=== PATIENT | male | born 1965 | race Caucasian/White ===

== ENCOUNTER → 2020-09-23 08:35 | Outpatient (BNVA) | payer MEDICAID, SELFPAY | PROVIDERS: PCP Family Medicine; Visit Provider Nurse Practitioner Gerontology | DX: Z76.89 Persons encountering health services in other specified circumstances (principal) ==

== ENCOUNTER → 2021-03-17 13:32 | Outpatient (BNVA) | payer SELFPAY | PROVIDERS: PCP Family Medicine; Visit Provider Internal Medicine | DX: Z02.79 Encounter for issue of other medical certificate (principal) ==

== ENCOUNTER → 2022-03-05 08:47 | Outpatient (BNVA) | payer SELFPAY | PROVIDERS: PCP Family Medicine; Visit Provider Internal Medicine | DX: Z02.79 Encounter for issue of other medical certificate (principal) ==

== ENCOUNTER 2023-02-10 13:10 | Outpatient (REF) | payer MEDICAID, SELFPAY | END 2023-02-10 13:11 | disposition home or self-care (01) | LOC: HO.LNP 13:10 | PROVIDERS: PCP Family Medicine; Visit Provider Surgery | DX: D17.9 Benign lipomatous neoplasm, unspecified (principal) | CPT/HCPCS: 11403; 11404; 88304; 99202 ==

== ENCOUNTER → 2023-02-16 09:41 | Outpatient (BNVA) | payer SELFPAY | PROVIDERS: PCP Family Medicine; Visit Provider Physician Assistant Medical | DX: Z02.79 Encounter for issue of other medical certificate (principal) ==

== ENCOUNTER → 2023-02-19 08:39 | Outpatient (BNVA) | payer MEDICAID, SELFPAY | PROVIDERS: PCP Family Medicine; Visit Provider Surgery | DX: D17.9 Benign lipomatous neoplasm, unspecified (principal) | CPT/HCPCS: 99212 ==

== ENCOUNTER → 2023-03-23 08:55 | Outpatient (BNVA) | payer MEDICAID, SELFPAY | PROVIDERS: PCP Family Medicine; Visit Provider Nurse Practitioner Family | DX: N40.1 Benign prostatic hyperplasia with lower urinary tract symptoms (principal); R39.15 Urgency of urination; R35.0 Frequency of micturition | CPT/HCPCS: 51798; 99202 ==

== ENCOUNTER → 2024-02-14 10:32 | Outpatient (BNVA) | payer SELFPAY | PROVIDERS: PCP Family Medicine; Visit Provider Physician Assistant Medical | DX: Z02.79 Encounter for issue of other medical certificate (principal) ==

== ENCOUNTER 2024-04-21 12:47 | Outpatient (REF) | payer MEDICAID, SELFPAY ==
[2024-04-21 20:33] LABS: Creatinine Urine 39.69 mg/dL; Microalbumin Urine < 5.0 mg/L
[2024-04-22 00:56] LABS: Alanine Aminotransferase 136 U/L (0-40); Albumin Level 4.3 g/dL (3.5-5.0); Alkaline Phosphatase 95 U/L (39-117); Anion Gap 15 (12-20); Aspartate Amino Transferase 74 U/L (5-37); Bilirubin Direct 0.2 mg/dL (0.0-0.5); Bilirubin Total 0.7 mg/dL (0.0-1.0); Blood Urea Nitrogen 20 mg/dL (9-16); Calcium 10.5 mg/dL (8.4-10.2); Carbon Dioxide 23 mmol/L (22-29); Chloride 101 mmol/L (96-108); Cholesterol 225 mg/dL (<200); Estimated Glomerular Filt Rate > 60; Glucose Random 314 mg/dL (60-115); HDL Cholesterol 39 mg/dL (>40); Potassium 4.2 mmol/L (3.3-5.1); Sodium 135 mmol/L (135-145); Total Protein 7.1 g/dL (6.5-8.0); Triglycerides 455 mg/dL (<150)
[2024-04-22 04:00] LABS: Estimated Average Glucose 306 mg/dL; Hemoglobin A1c % 12.3 % (<6.0)
== END 2024-04-21 12:48 | disposition home or self-care (01) ==
LOC: HO.HHCL 12:47
PROVIDERS: Visit Provider Family Medicine
DX: E11.65 Type 2 diabetes mellitus with hyperglycemia (principal); E78.5 Hyperlipidemia, unspecified
CPT/HCPCS: 36415; 80048; 80061; 80076; 82043; 82570; 83036

== ENCOUNTER 2024-04-27 08:52 | Outpatient (REF) | payer MEDICAID, SELFPAY ==
--- NOTE | ~2024-04-27 | US_ITS ---
EXAMINATION: US ABDOMEN COMPLETE CLINICAL INFORMATION: Transaminitis. COMPARISON: Ultrasound abdomen 03/21/2019 and 11/20/2008. TECHNIQUE: Real-time imaging of the abdominal viscera. FINDINGS: PANCREAS: Visualized portions of the pancreas are unremarkable. ABDOMINAL AORTA: The proximal, mid, and distal segments are normal in caliber. INFERIOR VENA CAVA: Visualized portions are normal. LIVER: Liver is enlarged measuring 19.0 cm with increased echogenicity suggesting hepatic steatosis. The liver contour is normal. No focal hepatic lesion. There is no intrahepatic biliary duct dilatation seen. GALLBLADDER: Normal. The gallbladder is physiologically distended without evidence of stones, sludge, polyps, wall thickening or pericholecystic fluid. Sonographic Ca sign is negative. COMMON BILE DUCT: Normal in caliber measuring 0.3 cm in diameter. RIGHT KIDNEY: No hydronephrosis or renal calculi. The kidney measures 11.4 cm in maximum dimension. Right renal cystic focus in the interpolar region measuring up to 1.3 cm, simple appearing, not requiring follow-up. LEFT KIDNEY: Normal. No hydronephrosis. No renal calculi or focal parenchymal lesions. The kidney measures 11.2 cm in maximum dimension. SPLEEN: Normal. The spleen measures 10.2 cm in maximum dimension. FREE FLUID: None. US/US abdomen complete IMPRESSION: 1. Liver is enlarged measuring 19.0 cm with increased echogenicity suggesting hepatic steatosis. 2. Right renal cystic focus in the interpolar region measuring up to 1.3 cm, simple appearing, not requiring follow-up.
[2024-04-27 11:53] LABS: Prostate Specific Antigen 0.33 ng/mL (<0.05-4.0)
[2024-04-27 11:54] LABS: Alanine Aminotransferase 135 U/L (0-40); Albumin Level 4.1 g/dL (3.5-5.0); Alkaline Phosphatase 93 U/L (39-117); Aspartate Amino Transferase 70 U/L (5-37); Bilirubin Direct 0.1 mg/dL (0.0-0.5); Bilirubin Total 0.6 mg/dL (0.0-1.0); Iron 132 mcg/dL (45-160); Percent Iron Saturation 40 % (15-50); Total Iron Binding Capacity 326 mcg/dL (228-428); Total Protein 6.9 g/dL (6.5-8.0); Unsaturated Iron Binding 194 ug/dL
[2024-04-27 12:00] LABS: Ferritin 852 ng/mL (20-250)
[2024-04-28 09:29] LABS: HBS Num1 7.35 mIU/mL (0-7.99); HBsAGNum1 0.29 S/CO (0.00-0.99); Hepatitis A Antibody IgM 0.14 Index (0-0.79); Hepatitis B Core Antibody Nonreactive (Nonreactive); Hepatitis B Surface Antigen Negative (Negative); ~HepC Num1 0.09 S/CO (0.00-0.79); ~Hepatitis A Antibody IgM Nonreactive (Nonreactive); ~Hepatitis B Surface Antibody NONREACTIVE (Nonreactive); ~Hepatitis C Antibody Nonreactive (Nonreactive)
[2024-04-29 02:08] LABS: Ceruloplasmin 26 mg/dL (14-30)
[2024-05-01 12:08] LABS: Alpha Fetoprotein 5.1 ng/mL (<6.1)
[2024-05-02 14:08] LABS: Smooth Muscle Antibody <20 U (<20)
[2024-05-02 15:13] LABS: Mitochondrial Antibodies NEGATIVE (NEGATIVE)
[2024-05-03 07:42] LABS: Anti Nuclear Antibody Screen NEGATIVE (NEGATIVE)
== END 2024-04-27 08:53 | disposition home or self-care (01) ==
LOC: HO.US 08:52
PROVIDERS: PCP Family Medicine; Visit Provider Family Medicine
DX: R39.198 Other difficulties with micturition (principal); R79.89 Other specified abnormal findings of blood chemistry
CPT/HCPCS: 36415; 76700; 80076; 82105; 82390; 82728; 83540; 84153; 86015; 86038; 86381; 86704; 86706; 86709; 86803; 87340

== ENCOUNTER 2024-10-02 10:51 | Outpatient (REF) | payer OTHER, SELFPAY ==
[2024-10-02 12:32] LABS: Hematocrit 45.7 % (42.0-52.0); Hemoglobin 16.4 g/dl (14.0-18.0); Mean Corpuscular HGB Conc 35.9 g/dl (31.0-36.0); Mean Corpuscular Hemoglobin 30.8 pg (27.0-33.0); Mean Corpuscular Volume 85.7 fL (80.0-98.0); Mean Platelet Volume 9.8 fL (9.4-12.4); Platelet Count 230 X10*3/uL (160-400); Red Blood Count 5.33 X10*6/uL (4.60-5.80); Red Cell Distribution Width 12.1 % (11.0-16.0); White Blood Count 7.9 X10*3/uL (4.8-10.8)
[2024-10-02 12:37] LABS: INTERNATIONAL NORM RATIO 0.9 (0.9-1.1); Prothrombin Time 10.5 SEC (10.9-12.4)
[2024-10-02 12:43] LABS: Estimated Average Glucose 232 mg/dL; Hemoglobin A1C 342.9118 umol/L; Hemoglobin A1c % 9.7 % (<6.0); Total Hemoglobin (HGBA1C) 4154.6114 umol/L
[2024-10-02 13:03] LABS: Cholesterol 163 mg/dL (<200); HDL Cholesterol 35 mg/dL (>40); LDL Cholesterol Calculated 87 mg/dL (<100); Triglycerides 209 mg/dL (<150)
[2024-10-02 13:17] LABS: TSH reflex Free T4 1.21 uIU/mL (0.32-4.0)
[2024-10-03 22:23] LABS: Immunoglobulin A 337 mg/dL (47-310)
[2024-10-05 13:44] LABS: Transglutaminase IgA <1.0 U/mL
[2024-10-05 16:39] LABS: Alpha 1 Anti-trypsin 134 mg/dL (83-199)
== END 2024-10-02 10:52 | disposition home or self-care (01) ==
LOC: HO.LAB 10:51
PROVIDERS: PCP Student in an Organized Health Care Education/Training Program; Visit Provider Internal Medicine
DX: R79.89 Other specified abnormal findings of blood chemistry (principal); K76.0 Fatty (change of) liver, not elsewhere classified; F10.90 Alcohol use, unspecified, uncomplicated; E11.9 Type 2 diabetes mellitus without complications; E78.5 Hyperlipidemia, unspecified; D36.9 Benign neoplasm, unspecified site
CPT/HCPCS: 36415; 80061; 82103; 82784; 83036; 84443; 85027; 85610; 86364; 99202

== ENCOUNTER 2024-10-02 10:51 | Outpatient (AMB) | payer OTHER, SELFPAY ==
--- NOTE | 2024-10-02 10:55 | A.OFFVIS_ITS ---
Vital Signs 10/02/24 10:56 Height 5 ft 6 in Weight 213 lb 13.574 oz BMI 34.5 BP 142/75 H Blood Pressure Location Lt brachial Position Sitting Pulse 92 Intake Visit Reasons: Elevated LFTs Intake Note: Krunal presents in the office as a for a new patient appt for elevated LFTs. CC: Pains in the stomach in the lower abdomen once in a while. He states that he has gone to urgent care but they have not found out whats wrong. Promotional Demonstrator Required: No Allergies penicillin V Allergy (Unknown, Verified 10/02/24 10:58) severe Penicillins [PENICILLINS] Allergy (Unknown, Verified 10/02/24 10:58) SEVERE RXN CHILD - DOES NOT REMEMBER EXACTLY WHAT HAPPENE HPI Comments Details: 59 y.o M with PMH of T2DM, HTN, fatty liver who is here for i) elevated LFTs. Has had abnormal LFTs since at least 2019. Risk factors: drinks 6 pack over the weekend. High BMI, DM, HLD. On mounjaro. Not on a statin. ii) surveillance colo. Last colonoscopy in 2015 (Dr Corado) excellent prep. Small ascending colon TA. Pt himself does not report abd pain, n,v, changes in bowel habits. No melena or hematochezia. No unintentional weight loss. PFSH Medical History VASILIY (obstructive sleep apnea) Constipation H. pylori infection Depression Tubular adenoma Hepatic steatosis Abnormal LFTs Hyperlipidemia LDL goal <100 Diabetes mellitus type 2, controlled, without complications Essential hypertension Surgical History S/P excision of lipoma (02/10/23) Hx of colonoscopy Hx of esophagogastroduodenoscopy Family History Mother Diabetes CVD (cardiovascular disease) Social History Alcohol intake: current Alcohol intake frequency: holidays/special occasions only Alcohol type: beer and wine Patient Tobacco Use Status: Never used Tobacco Review of Systems Const All systems reviewed & are unremarkable except as noted in HPI and below Physical Exam Vital Signs: Last Vital Signs Pulse 92 10/02/24 10:56 BP 142/75 H 10/02/24 10:56 BMI result Body Mass Index 34.5 No apparent distress Nonicteric Abdomen soft, nondistended, palpable liver edge Alert and oriented x3, normal gait Results Reviewed Results Reviewed: US Abd 04/2024: 1. Liver is enlarged measuring 19.0 cm with increased echogenicity suggesting hepatic steatosis. 2. Right renal cystic focus in the interpolar region measuring up to 1.3 cm, simple appearing, not requiring follow-up. Assessment & Plan Assessment & Plan (1) MetALD: Code(s): K76.0 - Fatty (change of) liver, not elsewhere classified; F10.90 - Alcohol use, unspecified, uncomplicated Category: Medical (2) Elevated LFTs: Code(s): R79.89 - Other specified abnormal findings of blood chemistry Category: Medical (3) Type 2 diabetes mellitus: Code(s): E11.9 - Type 2 diabetes mellitus without complications Category: Medical (4) Hyperlipidemia: Code(s): E78.5 - Hyperlipidemia, unspecified Category: Medical (5) Tubular adenoma: Code(s): D36.9 - Benign neoplasm, unspecified site Category: Medical Plan 1) Based on assesment, likely had fatty liver 2/2 metALD. Will get updated labs to get Fib-4. Almost all work up completed for chornic liver disease by PCP, will get TSH, celiac and A1AT for completion. Reviewed natural progression of liver disease and pt counseled on risk factors for disease progression including etOH use, obesity, metabolic factors. Plan: - Labs as below - EtOH abstinence - Optimize glycemic control. Agree with GLP-1A - Will also need management for HLD. Updated lipid panel ordered - 10% TBW loss recommended over the next 6 months - Will get CBC for non-invasive assessment of liver function i.e Fib-4. If has thrombocytopenia or high Fib-4 will add EGD to colo (see below) 2) Due for colo for surveillance of TA Plan: - [place] to be booked - Pt aware to HOLD mounjaro x 1 week prior - PEG prep Rxed and instrucitons reviewed. Follow up 3 months Orders: Orders Alpha 1 Anti-trypsin Today R79.89 - Other specified abnormal findings of blood chemistry Transglutaminase IgA Today R79.89 - Other specified abnormal findings of blood chemistry Prothrombin Time INR Today R79.89 - Other specified abnormal findings of blood chemistry Immunoglobulin A Today R79.89 - Other specified abnormal findings of blood chemistry TSH reflex Free T4 Today R79.89 - Other specified abnormal findings of blood chemistry Lipid Panel Today R79.89 - Other specified abnormal findings of blood chemistry Hemoglobin A1c Today R79.89 - Other specified abnormal findings of blood chemistry Complete Blood Count no Diff Today R79.89 - Other specified abnormal findings of blood chemistry Medications: New peg 3350-electrolytes 236-22.74-6.74 -5.86 gram (Golytely) as per split prep instructions, until fecal effluent is clear 240 mL PO Q10M 4,000 mL 0RF colonoscopy Coding Level of Care Code New Pt Level 5 (05108) Complex EM visit Add On G2211 Diagnoses MetALD K76.0; F10.90 Elevated LFTs R79.89 Type 2 diabetes mellitus E11.9 Hyperlipidemia E78.5 Tubular adenoma D36.9
[2024-10-02 10:56] VITALS: BP 142/75; PULSE 92; BMI 34.5
== END 2024-10-02 11:25 | disposition home or self-care (01) ==
PROVIDERS: PCP Student in an Organized Health Care Education/Training Program; Visit Provider Internal Medicine
DX: K76.0 Fatty (change of) liver, not elsewhere classified (principal); F10.90 Alcohol use, unspecified, uncomplicated; R74.01 Elevation of levels of liver transaminase levels; D36.9 Benign neoplasm, unspecified site
CPT/HCPCS: 99204; G2211

== ENCOUNTER 2024-10-05 14:54 | Outpatient (AMB) | payer OTHER, SELFPAY ==
--- NOTE | 2024-10-05 14:59 | A.OFFVIS_ITS ---
Intake Visit Reasons: balanitis/ urinary urgency Intake Note: Patient presents today for follow up visit on: urinary frequency Urology Medications: none Blood Thinner: none PVR: 37ml's Computational Scientist Required: No Accompanied by: Self / Same As Patient Allergies penicillin V Allergy (Unknown, Verified 10/05/24 15:14) severe Penicillins [PENICILLINS] Allergy (Unknown, Verified 10/05/24 15:14) SEVERE RXN CHILD - DOES NOT REMEMBER EXACTLY WHAT HAPPENE HPI Comments Details: Krunal is a very pleasant 59-year-old male patient of . He has a past medical history of obstructive sleep apnea, constipation, H pylori, depression, abnormal LFTs, hyperlipidemia, type 2 diabetes, and hypertension. He reports having followed up with his PCP a few months ago as he had been noting increase swelling and irritation noted to the head of his penis at which time was diagnosed with balanitis with his PCP. In discussion with the patient today he reports at that time his A1c 04/26 12.3. However since he has lowered his blood sugar levels he has noted improvement in balanitis. He also notes he had been experiencing issues with urinary urgency and frequency these symptoms have also subsided. In review of patient's chart it appears an abdominal ultrasound was ordered and performed. Bilateral kidneys with no hydronephrosis or renal calculi. Right kidney with 1.3 simple appearing renal cyst requiring no imaging follow-up per radiology report. 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 He reports noting issues with his urination when experiencing issues with constipation. We discussed correlation of constipation with urinary issues. In review of patient's chart it appears PSA 04/26 0.3. He currently denies any bothersome urinary issues. In office urinalysis results reviewed with the patient today 2+ glucosuria otherwise within normal limits. PVR 37 mL. [facility] Medical History VASILIY (obstructive sleep apnea) Constipation H. pylori infection Depression Tubular adenoma Hepatic steatosis Abnormal LFTs Hyperlipidemia LDL goal <100 Diabetes mellitus type 2, controlled, without complications Essential hypertension Surgical History S/P excision of lipoma (02/10/23) Hx of colonoscopy Hx of esophagogastroduodenoscopy Family History Mother Diabetes CVD (cardiovascular disease) Social History Alcohol intake: current Alcohol intake frequency: holidays/special occasions only Alcohol type: beer and wine Patient Tobacco Use Status: Never used Tobacco Review of Systems Const All systems reviewed & are unremarkable except as noted in HPI and below Physical Exam Const General: cooperative, healthy appearing, comfortable, no acute distress, well developed, alert and awake Nutritional Appearance: overweight Orientation/consciousness: patient oriented x3 Limitations: no limitations HEENT Head: Yes normal to inspection, Yes normocephalic and Yes atraumatic Ears: hearing grossly normal bilaterally Eyes General: appearance normal, both eyes and all related structures Neck Neck: Yes normal visual inspection and Yes trachea midline Chest Chest palpation & inspection: normal inspection of the chest Resp Effort & Inspection: normal respiratory effort and able to speak in complete sentences Cardio Rate: regular rate GI Inspection: Yes normal to inspection General: Yes no CVA tenderness Back/Spine/Pelvis Back: no CVA tenderness Skin General skin exam: no rashes or lesions noted Neuro General: patient oriented x3 Extrem General: Yes normal to inspection Psych Appearance: grossly normal and well kempt Mental Status: mental status grossly normal Speech and movement: Normal speech and movement present and Clear speech present Affect: normal affect Attitude: cooperative Thought process: Normal thought process present Thought content: Normal thought content present Insight: Fair insight present (Psych) Judgement: Fair judgement present (Psych) Office Procedures Post Void Residual Post Residual Void Post Void Residual (PVR): 37 [id number]-Swzr Void Residual by ultrasound Results AMB Urinalysis, Automated UA Leukoctes 0 Norberto/uL Last Edit by Suhas Bernard on 10/05/24 15:17 UA Nitrite Last Edit by Suhas Bernard on 10/05/24 15:17 UA Urobilinogen 0.2 mg/dL Last Edit by Suhas Gretchenjay on 10/05/24 15:17 UA Protein 0 mg/dL Last Edit by Suhas Bernard on 10/05/24 15:17 UA pH 6.0 Last Edit by Suhas Bernard on 10/05/24 15:17 UA Blood 0 Vinod/uL Last Edit by Suhas Bernard on 10/05/24 15:17 UA Specific [place] 1.020 Last Edit by Suhas Bernard on 10/05/24 15:17 UA Ketone Last Edit by Suhas Bernard on 10/05/24 15:17 UA Bilirubin 0 mg/dL Last Edit by Suhas Bernard on 10/05/24 15:17 UA Glucose 500 mg/dL Last Edit by Suhas Bernard on 10/05/24 15:17 Results Reviewed Results Reviewed: Laboratory Last Values Urine pH (Auto) 6.0 10/05/24 15:16 Specific [place] (Auto) 1.020 10/05/24 15:16 Urine Protein (Auto) 0 mg/dL 10/05/24 15:16 Glucose (UA)(Auto) 500 mg/dL 10/05/24 15:16 Urine Blood (Auto) 0 Vinod/uL 10/05/24 15:16 Urine Bilirubin (Auto) 0 mg/dL 10/05/24 15:16 Urine Urobilinogen (Auto) 0.2 mg/dL 10/05/24 15:16 Leukocyte Esterase (Auto) 0 Norberto/uL 10/05/24 15:16 Date of Service: 04/27/24 EXAMINATION: US ABDOMEN COMPLETE FINDINGS: PANCREAS: Visualized portions of the pancreas are unremarkable. ABDOMINAL AORTA: The proximal, mid, and distal segments are normal in caliber. INFERIOR VENA CAVA: Visualized portions are normal. LIVER: Liver is enlarged measuring 19.0 cm with increased echogenicity suggesting hepatic steatosis. The liver contour is normal. No focal hepatic lesion. There is no intrahepatic biliary duct dilatation seen. GALLBLADDER: Normal. The gallbladder is physiologically distended without evidence of stones, sludge, polyps, wall thickening or pericholecystic fluid. Sonographic Ca sign is negative. COMMON BILE DUCT: Normal in caliber measuring 0.3 cm in diameter. RIGHT KIDNEY: No hydronephrosis or renal calculi. The kidney measures 11.4 cm in maximum dimension. Right renal cystic focus in the interpolar region measuring up to 1.3 cm, simple appearing, not requiring follow-up. LEFT KIDNEY: Normal. No hydronephrosis. No renal calculi or focal parenchymal lesions. The kidney measures 11.2 cm in maximum dimension. SPLEEN: Normal. The spleen measures 10.2 cm in maximum dimension. FREE FLUID: None. IMPRESSION: 1. Liver is enlarged measuring 19.0 cm with increased echogenicity suggesting hepatic steatosis. 2. Right renal cystic focus in the interpolar region measuring up to 1.3 cm, simple appearing, not requiring follow-up. Assessment & Plan Assessment & Plan (1) Urinary urgency: Code(s): R39.15 - Urgency of urination Category: Medical (2) Urinary frequency: Code(s): R35.0 - Frequency of micturition Category: Medical (3) Bladder spasm: Code(s): N32.89 - Other specified disorders of bladder Category: Medical (4) Renal cyst: Code(s): N28.1 - Cyst of kidney, acquired Category: Medical Plan In office urinalysis results reviewed the patient today; as noted above. PVR 37 mL. We discussed importance of managing diabetes for improvement lower urinary tract symptoms as well as overall health and well-being. Recent PSA and abdominal ultrasound results reviewed with the patient today; as noted above. Prescription provided for p.r.n. Flomax. Discussed bladder triggers/irritants. Discussed, educated, and stressed the importance of adequate hydration relation to lower urinary tract symptoms as well as overall health and well-being Follow-up in 3 months with PVR; or sooner with any issues, concerns, and or questions. Orders: Orders AMB Post Void Residual by ultrasound Today R39.15 - Urgency of urination AMB Urinalysis Automated Today Z13.9 - Encounter for screening, unspecified Medications: New tamsulosin 0.4 mg PO BEDTIME 30 days 30 caps 2RF N20.0 - Calculus of kidney Patient Instructions: The patient had an opportunity to ask questions regarding the treatment plan. All questions were answered. Physical exam, labs, and imaging were discussed and reviewed in detail. As well as risks, benefits, and discussion of treatment choices. No major barriers to understanding were identified. The patient expressed understanding and agreement with the above treatment plan. The patient was made aware they should contact our office by phone for worsening of their current condition, the appearance of new symptoms, or with any questions or concerns. Compliance is encouraged with any medications and follow up testing that is ordered. It is a privilege to be allowed the opportunity to participate in? your urological care.? Again, if you have any questions or concerns If you have any questions or concerns please do not hesitate to contact me. The office is [phone]. This note is constructed using voice recognition software. While every effort h as been made to ensure accuracy home care administrator errors may have been included. Yours sincerely, DESI Martinez Coding Level of Care Code New Pt Level 4 (61206) Diagnoses Urinary urgency R39.15 Urinary frequency R35.0 Bladder spasm N32.89 Renal cyst N28.1 CPT Codes Post Residual Void - PVR CPT Code: 40143-Pnxi Void Residual by ultrasound ([id number])
== END 2024-10-05 15:27 | disposition home or self-care (01) ==
PROVIDERS: PCP Student in an Organized Health Care Education/Training Program; Visit Provider Nurse Practitioner Family
DX: R39.15 Urgency of urination (principal); R35.0 Frequency of micturition; N32.89 Other specified disorders of bladder; N28.1 Cyst of kidney, acquired; Z13.9 Encounter for screening, unspecified
CPT/HCPCS: 99214

== ENCOUNTER → 2024-10-05 14:54 | Outpatient (BNVA) | payer OTHER, SELFPAY | PROVIDERS: PCP Student in an Organized Health Care Education/Training Program; Visit Provider Nurse Practitioner Family | DX: R39.15 Urgency of urination (principal); R35.0 Frequency of micturition; N32.89 Other specified disorders of bladder; N28.1 Cyst of kidney, acquired | CPT/HCPCS: 51798; 81003; 99212 ==

== ENCOUNTER 2025-01-03 10:15 | Outpatient (AMB) | payer OTHER, SELFPAY ==
--- NOTE | 2025-01-03 10:16 | MHC.OFFVIS ---
Intake Visit Reasons: 3 month f/u Intake Note: Krunal presents as a telehealth 3 month follow up. CC: he states that starting yesterday he thinks he got a stomach virus. He is having severe diarrhea and pains all over the stomach. He states he has been taking over the counter diarrhea meds ans tylenol for the stomach pains. Allergies penicillin V Allergy (Unknown, Verified 01/03/25 10:16) severe Penicillins [PENICILLINS] Allergy (Unknown, Verified 01/03/25 10:16) SEVERE RXN CHILD - DOES NOT REMEMBER EXACTLY WHAT HAPPENE HPI Comments Details: 59 y.o M with PMH of T2DM, HTN, fatty liver who is here for i) elevated LFTs. Has had abnormal LFTs since at least 2019. Risk factors: drinks 6 pack over the weekend. High BMI, DM, HLD. On mounjaro. Not on a statin. ii) surveillance colo. Last colonoscopy in 2015 (Dr Corado) excellent prep. Small ascending colon TA. Pt himself does not report abd pain, n,v, changes in bowel habits. No melena or hematochezia. No unintentional weight loss. 01/03/25: Here for televisit. Reports having acute GI sx of lower abd pain and cramping with watery diarrhea up to 6-8 BMs per day. No blood in stool. Onset 1 day ago. Nausea +, no vomiting. No fevers or chills. No sick contacts. Had ground beef for lunch yest and sx within an hour. Took OTC anti-diarrheal to show up for work. Otherwise from liver standpoint. Has cut down etOH extensively. 2 beers in the last 4 months. Waiting to get the procedure date for colo. [facility] Medical History VASILIY (obstructive sleep apnea) Constipation H. pylori infection Depression Tubular adenoma Hepatic steatosis Abnormal LFTs Hyperlipidemia LDL goal <100 Diabetes mellitus type 2, controlled, without complications Essential hypertension Surgical History S/P excision of lipoma (02/10/23) Hx of colonoscopy Hx of esophagogastroduodenoscopy Family History Mother Diabetes CVD (cardiovascular disease) Social History Alcohol intake: current Alcohol intake frequency: holidays/special occasions only Alcohol type: beer and wine Patient Tobacco Use Status: Never used Tobacco Review of Systems Const All systems reviewed & are unremarkable except as noted in HPI and below Physical Exam Vital Signs: phone visit Telehealth Telehealth Telehealth Platform: Telephone Location of provider rendering services: practice address Location of patient: address on file Patient Identification confirmed using: Name, : Yes Telehealth method: voice only Patient verbally consented to treatment: Yes Patient verbally consented to billing insurance company: Yes Patient informed of any privacy concerns related to visit: Yes Minutes spent on Phone/Video with Pt.: 12 Assessment & Plan Assessment & Plan (1) Acute gastroenteritis: Code(s): K52.9 - Noninfective gastroenteritis and colitis, unspecified Category: Medical (2) MetALD: Code(s): K76.0 - Fatty (change of) liver, not elsewhere classified; F10.90 - Alcohol use, unspecified, uncomplicated Category: Medical (3) Elevated LFTs: Code(s): R79.89 - Other specified abnormal findings of blood chemistry Category: Medical (4) Type 2 diabetes mellitus: Code(s): E11.9 - Type 2 diabetes mellitus without complications Category: Medical (5) Hyperlipidemia: Code(s): E78.5 - Hyperlipidemia, unspecified Category: Medical (6) Tubular adenoma: Code(s): D36.9 - Benign neoplasm, unspecified site Category: Medical Plan 1) Likely has acute infectious gastroenteritis. Possibly 2/2 food borne toxin. Reviewed importance of staying hydrated. Avoid antidiarrheals, and NSAIDs. Plan: - Push fluids - gatorade/pedialyte etc - CLD today or until nausea and abd pain better - OK to take tylenol. Avoid NSAIDs - Would not recommend OTC anti-diarrheals for acute infectious GI illness - Work note to be given for today and tmrw. 2) In terms of liver disease, appreciated on efforts to cut down etOH. Will check updated MELD in 4 weeks. He likely has fatty liver 2/2 metALD. Reviewed natural progression of liver disease and pt counseled on risk factors for disease progression including obesity, metabolic factors. DM is suboptimally controlled. Plan: - Labs in 4 weeks. Will get updated Fib-4 as well. - Cont EtOH abstinence - Optimize glycemic control. - 10% TBW loss recommended 3) Due for colo for surveillance of TA Plan: - [place] to be booked. Reminder msg sent to schedulers. - Pt aware to HOLD mounjaro x 1 week prior Follow up after colo. Orders: Orders Prothrombin Time INR 1 Month R7 - Other specified abnormal findings of blood chemistry Complete Blood Count no Diff 1 Month R7. - Other specified abnormal findings of blood chemistry Comprehensive Met. Panel 1 Month R7. - Other specified abnormal findings of blood chemistry Coding Level of Care Code Tele Est Pt Level 4 (37825) Diagnoses Acute gastroenteritis K52.9 MetALD K76.0; F10.90 Elevated LFTs R7. Type 2 diabetes mellitus E11.9 Hyperlipidemia E78.5 Tubular adenoma D36.9
--- OUTSIDE RECORDS SUMMARY | 2025-01-03 11:56 | XMS_ITS | Clinical Summary ---
Author Organization [employer] Address [address] [place] [address] [address] Team Prov[address] Care [address] Grader Name Role Phone Ynes Nesbitt MD Primary Care Provider [phone] Taya Tom PharmD Unavailable Keysha Starr Unavailable Allergies Active Allergy Reactions Criticality Noted Date Comments Dulaglutide 10/26/2022 Metformin 07/28/2012 Other reaction(s): elevated LFTs Penicillin V Unknown 10/02/2010 Penicillins 10/26/2022 Medications omeprazole (PriLOSEC) [address] capsuleIndicatio ns:Gastroesophag eal reflux disease, unspecified whether esophagitis present TAKE ONE CAPSULE BY MOUTH EVERY DAY BEFORE A MEAL 90 capsule 1 04/13/20 24 Active amLODIPine (Norvasc) 5 MG tabletIndication s:Essential hypertension Take 1 tablet (5 mg) by mouth Once per day. 90 tablet 3 04/24/20 24 Active EPINEPHrine (Epipen) 0.3 MG/0.3ML injection syringeIndicatio ns:Allergic reaction, sequela INJECT INTRAMUSCULARLY DIRECTED ON PACKAGE FOR ANAPHYLAXIS 2 each 1 04/24/20 24 Active glipiZIDE XL (Glucotrol XL) 10 MG 24 hr tablet Take 1 tablet (10 mg) by mouth Once per day. TAKE 1 TABLET BY MOUTH DAILY 90 tablet 3 04/24/20 24 Active Clotrimazole Anti-Fungal 1 % creamIndications :Yeast infection APPLY TO AFFECTED AREA(S) AND SURROUNDING AREA(S) TWICE DAILY IN THE MORNING AND EVENING 45 g 1 05/23/20 24 Active omega-3 acid ethyl esters (Lovaza) 1 g capsule Take 2 capsules (2 g) by mouth 2 times daily. 360 capsule 06/23/20 24 Active FreeStyle lancetsIndicatio ns:Type 2 diabetes mellitus with hyperglycemia, without long-term current use of insulin ([facility]) 1 each by Other route 4 times daily. Test blood sugar 4 times daily 200 each 08/15/20 24 Active glucose blood (FREESTYLE LITE) test stripIndications :Type 2 diabetes mellitus with hyperglycemia, without long-term current use of insulin ([facility]) Test blood sugar 4 times daily 200 each 08/15/20 24 Active Blood Glucose Monitoring Suppl (FreeStyle Lite) w/Device kitIndications:T ype 2 diabetes mellitus with hyperglycemia, without long-term current use of insulin ([facility]) 1 each 4 times daily. 1 kit 08/15/20 24 Active loratadine (Claritin) 10 MG tabletIndication s:Seasonal allergies TAKE ONE TABLET BY MOUTH ONCE DAILY FOR ALLERGY 90 tablet 3 09/21/20 24 Active ibuprofen 800 MG tablet TAKE 1 TABLET BY MOUTH THREE TIMES A DAY 90 tablet 09/21/20 24 Active tamsulosin (Flomax) 0.4 MG 24 hr capsule TAKE 1 CAPSULE BY MOUTH AT BEDTIME 10/05/19 25 Active lisinopril 40 MG tabletIndication s:Essential hypertension,Typ e 2 diabetes mellitus with hyperglycemia, unspecified whether fdc insulin use ([facility]) Take 1 tablet by mouth once daily 90 tablet 3 10/17/19 25 Active Tirzepatide (Mounjaro) 7.5 MG/0.5ML solution auto-injectorInd ications:Type 2 diabetes mellitus with hyperglycemia, unspecified whether fdc insulin use ([facility]) Inject 7.5 mg under the skin 1 (one) time per week. 2 mL 3 10/17/19 25 Active Active Problems Problem Noted Date Diagnosed Date Physical exam 04/24/2024 Difficulty urinating 04/24/2024 Overview (04/24/2024): -on Flomax, denies non-compliance -has not seen Urology, given phone number to call 04/24/24 -ordered PSA level 04/24/24 Assessment & Plan (04/24/2024 11:10 AM EDT): -on Flomax, denies non-compliance -has not seen Urology, given phone number to call 04/24/24 -ordered PSA level 04/24/24 Preventative health care 06/30/2023 Overview (04/24/2024): -next physical exam due after 04/24/25 -eye care facilitated by [facility]. -dental home, not established. -health care proxy filed 04/24/24 Assessment & Plan (04/24/2024 11:16 AM EDT): -next physical exam due after 04/24/25 -eye care facilitated by [facility]. -dental home, not established. -health care proxy filed 04/24/24 Vitamin D deficiency 02/01/2023 Overview (06/30/2023): 50,000 units once a week started 08/10/2022. Assessment & Plan (02/01/2023 8:51 AM EDT): 50,000 units once a week started 08/10/2022. Generalized abdominal mass 02/01/2023 Overview (02/01/2023): Pt has 3 firm, mobile mass in abdomen ranging from 3-4cm -Ultrasound in the past did not demonstrate the masses. -Will refer to general surgery for evaluation. Assessment & Plan (02/01/2023 9:29 AM EDT): Pt has 3 firm, mobile mass in abdomen ranging from 3-4cm -Ultrasound in the past did not demonstrate the masses. -Will refer to general surgery for evaluation. Travel advice encounter 02/01/2023 Overview (02/01/2023): Acetazolamide refilled 02/01/2023 as he is [place]. Assessment & Plan (02/01/2023 9:31 AM EDT): Acetazolamide refilled 02/01/2023 as he is returning [place] April-May. Bradycardia 12/10/2022 Overview (02/01/2023): Asymptomatic bradycardia on apple watch. Pt referred to cardiology during urgent care visit. Apt was 07/18/2021. Positive inotropic response HR goes up with activity to 100 Assessment & Plan (02/01/2023 8:51 AM EDT): Asymptomatic bradycardia on apple watch. Pt referred to cardiology during urgent care visit. Apt was 07/18/2021. Positive inotropic response HR goes up with activity to 100 Chest discomfort 12/10/2022 Essential hypertension 12/10/2022 Overview (04/24/2024): Currently borderline controlled -Continue lisinopril 40 mg daily -Continue amlodipine 5 mg daily -ordered US and labs to evaluate liver to then further evaluate hypertension 04/24/24 Assessment & Plan (04/24/2024 11:14 AM EDT): Currently borderline controlled -Continue lisinopril 40 mg daily -Continue amlodipine 5 mg daily -ordered US and labs to evaluate liver to then further evaluate hypertension 04/24/24 Assessment & Plan (02/01/2023 8:49 AM EDT): Currently controlled -Continue lisinopril 40 mg daily -Continue amlodipine 5 mg daily Balanitis 10/26/2022 Gastric reflux 05/15/2022 Overview (06/23/2023): Continue omeprazole prn Assessment & Plan (04/24/2024 10:55 AM EDT): Continue omeprazole prn Assessment & Plan (02/01/2023 8:50 AM EDT): Continue omeprazole prn. Obstructive sleep apnea of adult 05/15/2022 Overview (06/23/2023): Using CPAP machine since 2016. Assessment & Plan (04/24/2024 11:03 AM EDT): Using CPAP machine since 2016 . Assessment & Plan (02/01/2023 8:50 AM EDT): Using CPAP machine since 2016. Seasonal allergies 05/15/2022 Overview (02/01/2023): Continue loratadine and fluticasone prn. Assessment & Plan (04/24/2024 11:04 AM EDT): Continue loratadine and fluticasone prn. Assessment & Plan (02/01/2023 8:50 AM EDT): Continue loratadine and fluticasone prn. Tubular adenoma 05/15/2022 Overview (10/05/2024): Hx tubular adenoma with Dr. Corado 08/2016. Repeat colonoscopy was due in 2020. -Encouraged again to reschedule 02/01/2023., seen by Dr. Starr 10/02/24, colonsocpy scheduled Assessment & Plan (04/24/2024 11:11 AM EDT): Hx tubular adenoma with Dr. Corado 08/2016. Repeat colonoscopy was due in 2020. -Encouraged again to reschedule 02/01/2023. Assessment & Plan (02/01/2023 9:30 AM EDT): Hx tubular adenoma with Dr. Corado 08/2016. Repeat colonoscopy was due in 2020. -Encouraged again to reschedule 02/01/2023. Abnormal LFTs 03/10/2013 Overview (10/05/2024): Likely metabolic dysfunction-associated steatotic liver disease, however ferritin 852, need to r/o hemochromatosis Lab Results Component Value Date TOTALBILIRUB 0.6 04/27/2024 AST 70 (H) 04/27/2024 AST 47 (H) 10/29/2022 ALT 135 (H) 04/27/2024 ALT 107 (H) 10/29/2022 ALP 93 04/27/2024 HEPCAB Nonreactive 04/27/2024 HEPAIGM Nonreactive 04/27/2024 HEPBSURFAB NONREACTIVE 04/27/2024 HEPBCOREAB Nonreactive 04/27/2024 HEPBSURFACAG Negative 04/27/2024 ANASCRE NEGATIVE 04/27/2024 ANATITER TNP 04/27/2024 MITOCHAB NEGATIVE 04/27/2024 SMAB <20 04/27/2024 CERULOPLASMI 26 04/27/2024 FERRITIN 852 (H) 04/27/2024 AFP 5.1 04/27/2024 -Ultrasound: 05/11/24US/US abdomen complete Liver is enlarged measuring 19.0 cm with increased echogenicity suggesting hepatic steatosis.Right renal cystic focus in the interpolar region measuring up to 1.3 cm, simple appearing, not requiring follow-up. -ferritin elevated at 852 HCC screening: AFP ordered 04/24/24 wit US Plan: Avoid alcohol. Dietary modification, increase physical activity. Referral to GI 04/24/24, seen by Dr. Starr 10/02/24 Will get updated labs to get Fib-4. Almost all work up completed for chornic liver disease by PCP, will get TSH, celiac and A1AT for completion. Reviewed natural progression of liver disease and pt counseled on risk factors for disease progression including etOH use, obesity, metabolic factors. Plan: - Labs as below - EtOH abstinence - Optimize glycemic control. Agree with GLP-1A - Will also need management for HLD. Updated lipid panel ordered - 10% TBW loss recommended over the next 6 months - Will get CBC for non-invasive assessment of liver function i.e Fib-4. If has thrombocytopenia or high Fib-4 will add EGD to colo (see below) Assessment & Plan (05/16/2024 3:59 PM EDT): Likely metabolic dysfunction-associated steatotic liver disease, however ferritin 852, need to r/o hemochromatosis Lab Results Component Value Date TOTALBILIRUB 0.6 04/27/2024 AST 70 (H) 04/27/2024 AST 47 (H) 10/29/2022 ALT 135 (H) 04/27/2024 ALT 107 (H) 10/29/2022 ALP 93 04/27/2024 HEPCAB Nonreactive 04/27/2024 HEPAIGM Nonreactive 04/27/2024 HEPBSURFAB NONREACTIVE 04/27/2024 HEPBCOREAB Nonreactive 04/27/2024 HEPBSURFACAG Negative 04/27/2024 ANASCRE NEGATIVE 04/27/2024 ANATITER TNP 04/27/2024 MITOCHAB NEGATIVE 04/27/2024 SMAB <20 04/27/2024 CERULOPLASMI 26 04/27/2024 FERRITIN 852 (H) 04/27/2024 AFP 5.1 04/27/2024 -Ultrasound: 05/11/24US/US abdomen complete Liver is enlarged measuring 19.0 cm with increased echogenicity suggesting hepatic steatosis.Right renal cystic focus in the interpolar region measuring up to 1.3 cm, simple appearing, not requiring follow-up. -ferritin elevated at 852 HCC screening: AFP ordered 04/24/24 wit US Plan: Avoid alcohol. Dietary modification, increase physical activity. Referral to GI 04/24/24 Diabetes mellitus, type 2 07/28/2012 Overview (08/15/2024): Diabetes is not controlled. Lab Results Component Value Date HGBA1C 13.1 (A) 08/15/2024 HGBA1C 12.3 (H) 04/21/2024 HGBA1C 9.6 (A) 02/01/2023 HGBA1C 12.6 (H) 10/29/2022 HGBA1C 10.9 (H) 08/03/2022 GLUCOSE 314 (H) 04/21/2024 Lab Results Component Value Date CREATININE 1.19 04/21/2024 EGFR >60 04/21/2024 MICROALBCREU TNP 04/21/2024 LDLCHOLCAL TNP 04/21/2024 Pt was followed by endocrinology but wants to continue with PCP due to insurance issues and medication changes. - He is going to continue trying lifestyle modifications - Januvia discontinued. - Metformin discontinued due to increased LFT - Trulicity discontinued due to allergic reaction Patient reported local skin reaction from Trulicity and willing to retry alt. GLP1: CDTM [facility] started Mounjaro 2.5mg. Patient reports adherence and denies ACE to [facility] 08/15/24. Mounjaro increased to 5mg once weekly 08/15/24. - Invokana discontinued by [facility] 08/15/24 due to recent UTI and ongoing balanitis - Blood pressure is at goal of <140/90 per JNC 8 guidelines. - Declines statin due to LFTS >3 times normal on statin - Urine microalbumin/creatine ratio is at goal of <35ug/mg/cr 01/2019. Normal at 7. - s/p Hep B series - Importance of low-fat, low cholesterol, ADA diet discussed. Importance of moderate physical activity discussed. - He declines seeing DM educator and cement sprayer helper. -Dutch/Arb: lisinopril 40mg -Statin therapy: Not on statin due to elevated liver. -Diabetic eye exam: Referral done 02/01/2023 -Diabetic foot exam: Done 04/24/24 -Continue lifestyle modifications -Continue current medications: -Mounjaro 5mg once weekly - Glipizide ER 10 mg daily 04/24/24 -A1C on 04/21/24 was 12.3% -pt denies seeing any specialist -he denies having a CGM device -evaluating liver to possibly start on Statin (fish oil changed to vascepa by [facility]) -re-referred to Collaborative Drug Therapy Managment Program with our PharmD, [facility] Assessment & Plan (04/24/2024 11:15 AM EDT): Diabetes is not controlled. Lab Results Component Value Date HGBA1C 12.3 (H) 04/21/2024 HGBA1C 9.6 (A) 02/01/2023 HGBA1C 12.6 (H) 10/29/2022 HGBA1C 10.9 (H) 08/03/2022 GLUCOSE 314 (H) 04/21/2024 Lab Results Component Value Date CREATININE 1.19 04/21/2024 EGFR >60 04/21/2024 MICROALBCREU TNP 04/21/2024 LDLCHOLCAL TNP 04/21/2024 Pt was followed by endocrinology but wants to continue with PCP due to insurance issues and medication changes. - He is going to continue trying lifestyle modifications - Januvia discontinued. - Metformin discontinued due to increased LFT - Trulicidy discontinued due to allergic reaction - Blood pressure is at goal of <140/90 per JNC 8 guidelines. - Declines statin due to LFTS >3 times normal on statin - Urine microalbumin/creatine ratio is at goal of <35ug/mg/cr 01/2019. Normal at 7. - s/p Hep B series - Importance of low-fat, low cholesterol, ADA diet discussed. Importance of moderate physical activity discussed. - He declines seeing DM educator and cement sprayer helper. -Reschedule CDTM to discuss retrying glp 1 -Dutch/Arb: lisinopril 40mg -Statin therapy: Not on statin due to elevated liver. -Diabetic eye exam: Referral done 02/01/2023 -Diabetic foot exam: Done 04/24/24 -Continue lifestyle modifications -Continue current medications: - Invonkana 300 daily - Glipizide ER 10 mg daily 04/24/24 -A1C on 04/21/24 was 12.3% -pt denies seeing any specialist -he denies having a CGM device -evaluating liver to possibly start on Statin -re-referred to Collaborative Drug Therapy Managment Program with our PharmD, [facility] Assessment & Plan (02/01/2023 10:57 AM EDT): Diabetes is not controlled but much improved with CDTM. Pt was followed by endocrinology but wants to continue with PCP due to insurance issues and medication changes. - He is going to continue trying lifestyle modifications - Invonkana 300 daily. - Glipizide ER 10 daily. - Januvia discontinued due to infections. - Metformin discontinued due to increased LFT. - Trulicidy discontinued due to irritation at injection site. I would like to retry GLP1 he agrees and will discuss at CDTM - Blood pressure is at goal of <140/90 per JNC 8 guidelines. - Declines statin due to LFTS >3 times normal on statin - Urine microalbumin/creatine ratio is at goal of <35ug/mg/cr Normal at 7 10/2022 - s/p Hep B series - Importance of low-fat, low cholesterol, ADA diet discussed. Importance of moderate physical activity discussed. - He declines seeing DM educator and cement sprayer helper. - Seen CDTM 12/23/2022. - Reschedule CDTM to discuss retrying glp 1. Lab Results Component Value Date HGBA1C 9.6 (A) 02/01/2023 HGBA1C 12.6 (H) 10/29/2022 HGBA1C 10.9 (H) 08/03/2022 - Lab Results Component Value Date MICROALBUR 0.4 08/03/2022 CREATININE 1.18 10/29/2022 -Changes: -Dutch/Arb: lisinopril 40mg -Statin therapy: Not on statin due to elevated liver. -Diabetic eye exam: Referral done 02/01/2023. -Diabetic foot exam: -Continue lifestyle modifications -Continue current medications Dyslipidemia 07/28/2012 Overview (04/24/2024): Lab Results Component Value Date CHOL 225 (H) 04/21/2024 TRIG 455 (H) 04/21/2024 TRIG 677 (H) 10/29/2022 HDL 39 (L) 04/21/2024 LDLCHOLCAL TNP 04/21/2024 -continue lifestyle modification - does not tolerate statin due to LFTs -Continue fish oil Assessment & Plan (04/24/2024 10:58 AM EDT): Lab Results Component Value Date CHOL 225 (H) 04/21/2024 TRIG 455 (H) 04/21/2024 TRIG 677 (H) 10/29/2022 HDL 39 (L) 04/21/2024 LDLCHOLCAL TNP 04/21/2024 -continue lifestyle modification - does not tolerate statin due to LFTs -Continue fish oil Assessment & Plan (02/01/2023 10:57 AM EDT): Does not tolerate statin or fenofibrate due to LFTs > 3 times normal -Continue fish oil. -10/23/22 - TRI 677, unable to calculate LDL. Resolved Problems Problem Noted Date Diagnosed Date Resolved Date Transaminitis 02/01/2023 05/31/2024 Overview (02/01/2023): AST 47, ALT 107 -Hep panel neg 03/23/13 -Abdominal on 03/23/19 shows hepatic steatosis Assessment & Plan (02/01/2023 9:04 AM EDT): AST 47, ALT 107 -Hep panel neg 03/23/13 -Abdominal on 03/23/19 shows hepatic steatosis Elevated liver enzymes 10/30/202202/01 Hyperlipidemia 09/17/2014 02/01/2023 Depressive disorder 07/28/2012 04/19/20 24 Encounters Date Type Department Care Team Description 10/17/2024 Telephone [facility] [address], [place] [phone] Ynes Nesbitt MD 10/17/2024 Telephone [facility] [address] [place], [place] [phone] Renetta Montesinos [place] Durable Medical Equipment 10/17/2024 Travel 10/10/2024 Travel from Last 3 Months Immunizations Name Administration Dates Next Due Hep A, Adult 03/25/2022,02/13/2019 Hep B, adult 05/20/2015,09/17/2014,03/10/2013 Influenza Injectable Quadriv alant Preservative Free IIV4 MDCK 07/11/2022 Influenza injectable quadriv alent IIV4 with preservative 07/15/2017,07/27/2016,10/24/2015 Influenza injectable quadriv alent preservative free 11/13/2023,07/25/2021,07/01/2020,07/24,09/22/2018 Influenza, IIV3, injectable 09/30/2011 Influenza, Split (incl. marisela fied surface antigen) 07/28/2012 MMR 02/07/2010 Moderna Covid-19 Vaccine 12+ 12/31/2021, 08/08/2021,01/19/2021,01/09,12/13/2020 Pfizer Covid-19 Vaccine 12+ 08/08/2021 Pneumococcal Conjugate PCV 20 02/11/2023 Pneumococcal Polysaccharide PPSV23 10/24/2015 Tdap 03/17/2022,09/17/2014 Zoster, Recombinant 10/21/2021,08/08/2021 Social History Tobacco Use Types Packs/Day Years Used Date Smoking Tobacco: Never Passive Smoke Exposure: Never Smokeless Tobacco: Never Tobacco Cessation:Counseling Given: Not Answered Depression Answer Date Recorded Patient Health Questionnaire-9 Score 0 04/24/2024 Patient Health Questionnaire-9 Score 0 04/24/2024 Last PHQ-9: Questionnaire Data Not on file 0 04/24/2024 Housing Stability Answer Date Recorded What is your housing situation today? I am not s ure 04/24/[address] you li ve. Do you have problems with any of the following? None of the above 04/24/2024 Food Insecurity Answer Date Recorded Within the past 12 months, y ou worried that your food would run out before you got money to buy more: Never True 04/24/2024 Within the past 12 months,th e food you bought just didn't last and you didn't have enough money to get more: Never True Transportation Answer Date Recorded In the past 12 months, has l ack of transportation kept you from medical appts, meetings, work or from getting things needed for daily living? No 04/24/2024 Utilities Answer Date Recorded In the past 12 months, has t he electric, gas, oil or water company threatened to shut off services in your home? No 04/24/2024 Depression Answer Date Recorded Patient Health Questionnaire-2 Score 0 04/24/2024 Internet Access Answer Date Recorded Internet Access Q1 No 06/02/2024 Internet Access Q2 I do not want or need it 05/06 Sex and Gender Information Value Date Recorded Sex Assigned at Male 08/03/2022 10:20 AM EDT Legal Sex Male 10:20 AM EDT Gender Identity Male 08/03/2022 10:20 AM EDT Sexual Orientation Straight 08/03/2022 10 :20 AM EDT Last Filed Vital Signs Vital Sign Reading Time Taken Comments Blood Pressure 112/68 10/17/2024 9:40 AM EST Pulse 93 10/17/2024 9:40 AM EST Temperature 36.9 ??C (98.4 ??F) 07/24/2024 10:16 AM E DT Respiratory Rate 17 07/24/2024 10:16 AM EDT Oxygen Saturation 97% 04/24/2024 10:42 AM EDT Inhaled Oxygen Concentration - - Weight 99.4 kg (219 lb 3.2 oz) 07/24/2024 10:16 AM EDT Height 167.6 cm (5' 6 ) 07/24/2024 10:16 AM EDT Body Mass Index 35.38 07/24/2024 10:16 AM EDT Plan of Treatment Health Maintenance Due Date Last Done Comments CT Colonography 1966 FIT DNA/Cologuard 1966 FIT 1966 FOBT 1966 Sigmoidoscopy 1966 Alcohol/Substance Use Screening 1978 Colonoscopy 08/04/2021 08/04/2016 Colorectal Cancer Screening 08/04/2021 COVID-19 Vaccine ( season) 2024 11/13/2023, 12/31/2021, 08/08/2021, Additional history exists Influenza Vaccine (#1) 2024 , 07/11/2022, 07/25/2021, Additional history exists Diabetes: Hemoglobin A1C 12/31/2024 024, 08/15/2024, 04/21/2024, Additional history exists Diabetes: Urine Protein Screening 04/21/2025 04/21/2024, 10/29/2022, 08/03/2022 Depression Screening 04/24/2025 04/24/2024, 04/24/20 24 Diabetes: Foot Exam 04/24/2025 04/24/2024, 04/24/2024, 04/24/2024 SDOH Screening 04/24/2025 04/24/2024 Tobacco Screening 04/24/2025 04/24/2024 Lipid Panel 10/02/2025 10/02/2024, 0706/2024, 10/29/2022, Additional history exists Eye Exam 02/01/2026 02/02/2024, 05/0 10/2023, 02/02/2024, Additional history exists DTaP/Tdap/Td Vaccines (3 - Td or Tdap) 03/17/2032 03/17/2022, 09/17/2014 RSV Patients and Patients Aged 60 years or older (1 - 1-dose 75+ series) 2041 Hepatitis B Vaccines Completed 05/20/2015, 09/17/2014, 03/10/2013 Zoster Vaccines Completed 10/21/2021, 08/08/2021 Hepatitis A Vaccines Aged Out 03/25/2022, 02/14/20 19 No longer eligible based on patient's age to complete this topic HIV Screening Completed 02/01/2023 Pneumococcal Vaccine: 50+ Years Completed 02/11/2023, 10/24/2015 Hepatitis C Screening Completed 04/27/2024 , 02/01/2023, 03/16/2013 HIB Vaccines Aged Out No longer eligi ble based on patient's age to complete this topic HPV Vaccines Aged Out No longer eligi ble based on patient's age to complete this topic IPV Vaccines Aged Out No longer eligi ble based on patient's age to complete this topic Meningococcal Vaccine Aged Out No nima ehsan eligible based on patient's age to complete this topic RSV under 20 months Aged Out No longe r eligible based on patient's age to complete this topic Rotavirus Vaccines Aged Out No longer eligible based on patient's age to complete this topic Goals Goal Patient Goal Type Associated Problems Recent Progress Patient-Stated? Author Hemoglobin A1c < 7 Result Component 9.7(10/02/2024 12:04 PM EST) Taya Mendez PharmD Procedures Procedure Name Priority Date/Time Associated Diagnosis Comments HEMOGLOBIN A1C Routine 10/02/2024 12:04 PM EST LIPID PANEL, STANDARD Routine 10/02/2024 12:04 PM EST HEPATITIS PANEL, GENERAL Routine 04/27/2024 9:24 AM EDT Abnormal LFTs ALBUMIN, RANDOM URINE W/CREATININE Routine 04/21/2024 12:50 PM EDT Type 2 diabetes mellitus with hyperglycemia, without long-term current use of insulin ([facility]) HIV 1/2 ANTIGEN/ANTIBODY, FOURTH GENERATION W/RFL Routine 02/01/2023 9:31 AM EDT Routine screening for STI (sexually transmitted infection) HM COLONOSCOPY Routine 08/04/2016 from Last 3 Months or Most Recently Relevant to Health Maintenance Results * (ABNORMAL) Hemoglobin A1c (10/02/2024 12:04 PM EST) Hemoglobin A1c 9.7(H) <6.0 % [facility] Comment:Hemoglobin A1C Refer ence Range Adults: 4.8 - 6.0 % Non diabetic: < 6.0 % Goal: < 7.0 %Additional Action Suggested: > 8.0 %Note: Hemoglobin A1c results are invalid for patients with abnormal amounts of HbF. Blood transfusions may impact the HbA1c concentration in the patient sample. Estimated Average Glucose 232 mg/dL [facility] Comment:eAG = Estimated ave rage glucose which is %A1C expressed asaverage glucose, using the formula of the A1Y-TzfgydtNzpywdr Glucose study (ADAG), Diabetes Care, Vol.31,#8,2007 10/02/2024 12:0 4 PM EST 10/02/2024 12:04 PM EST us Generic External Data Provider LAB BLOOD ORDERAB LES Final Result [facility] [address] [place] [phone] * (ABNORMAL) Lipid Panel, Standard (10/02/2024 12:04 PM EST) Triglycerides 209(H) <150 mg/dL [facility] Comment:Desirable Triglyceri de: less than 150 mg/dLBorderline High Triglyceride 150-199 mg/dLHigh Triglyceride: 200-499 mg/dLVery High Triglyceride: greater than or equal to 5OO mg/dL Cholesterol 163 <200 mg/dL [facility] Comment:Desirable Cholestero l: less than 200 mg/dLBorderline High Cholesterol: 200-239 mg/dLHigh Cholesterol: greater than 239 mg/dL LDL Cholesterol Calculated 87 <100 mg/dL [facility] Comment:Desirable LDL: less than 100 mg/dLNear Optimal/Above Optimal LDL: 110- 129 mg/dLBorderline High LDL: 130-159 mg/dLHigh LDL: 160-189 mg/dLVery High LDL: greater than or equal to 190 mg/dL HDL Cholesterol 35(L) >40 mg/dL [facility] Comment:Desirable HDL: great er than 40 mg/dL Note: This HDL assay may give artificially low results in patients with liver disease. 10/02/2024 12:0 4 PM EST 10/02/2024 12:04 PM EST Generic External Data Provider LAB BLOOD ORDERAB LES Final Result Performing Organization Address [facility] de Phone Number [facility] [address] [place] [phone] * Hepatitis Panel, General (04/27/2024 9:24 AM EDT) Hepatitis A IgM Nonreactive Nonreactive [facility] Comment:IgM antibodies to NEELY V not detected; does not exclude earlyacute or recovered HAV infection. ~Hepatitis B Surface Antibody NONREACTIVE Nonreactive [facility] Comment:Nonreactive: < 8.00 mIU/mL Hepatitis B Core Antibody Nonreactive Nonreactive [facility] Hepatitis C Antibody Nonreactive Nonreactive [facility] Comment:Antibodies to HCV no t detected; does not exclude early acuteHCV infection. Hepatitis B Surface Ag Negative Negative [facility] Blood Venous blood specimen / Unknown 04/27/2024 9:24 AM EDT 04/27/2024 9:28 AM EDT Ynes Nesbitt MD LAB BLOOD ORDERABLES Final Result Performing Organization Address [facility] de Phone Number [facility] [address] [place] [phone] * Albumin, Random Urine W/Creatinine (04/21/2024 12:50 PM EDT) Creatinine, Urine 39.69 mg/dL [facility] Microalbumin Urine <5.0 mg/L [facility] Microalbum Creatinine Ratio Ur TNP <30 ug/mg cr [facility] Comment:Unable to calculate albumin/creatinine ratio due to lowmicroalbumin or creatinine result. Urine 04/21/2024 12:5 0 PM EDT 04/21/2024 4:18 PM EDT Ynes Nesbitt MD LAB URINE ORDERABLES Final Result [facility] [address] [place] [phone] [phone] * HIV-1/2 Antigen and Antibodies, Fourth Generation, with Reflexes (02/01/2023 9:31 AM EDT) HIV Antigen/Antibody, 4th Generation NON-REAC TIVE NON-REAC TIVE [facility] Comment: HIV-1 antigen and HIV-1/HIV-2 antibodies were not detected. There is no laboratory evidence of HIV infection. PLEASE NOTE: This information has been disclosed to you from records whose confidentiality may be protected by state law. ??If your state requires such protection, then the state law prohibits you from making any further disclosure of the information without the specific written consent of the person to whom it pertains, or as otherwise permitted by law. A general authorization for the release of medical or other information is NOT sufficient for this purpose. ?? For additional information please refer to http://education.Yandex.Isoflux/faq/LAB957 (This link is being provided for informational/ educational purposes only.) The performance of this assay has not been clinically validated in patients less than 2 years old. Blood Venous blood specimen / Unknown 02/01/2023 9:31 AM EDT 02/01/2023 9:32 AM EDT Ynes Nesbitt MD LAB BLOOD ORDERABLES Final Result [facility] [address], [place] [address] [facility] [address] [place] [phone] * Hm Colonoscopy (08/04/2016) Colonoscopy tubular adenoma with Dr. Corado Soren Stevenson MD HEALTH MAINTENANCE Final Result from Last 3 Months or Most Recently Relevant to Health Maintenance Insurance [facility] Advance Directives Documents on File Type Date Recorded Patient Information Operator Expl anation Advance Directives and Living Will 04/24/2024 Health Care Proxy 04/24/[address]ader Relationship Specialty Start Date End Date Francis, MD Ynes [address] [place] [phone] PCP - General Family Medicine 10/04/18 Taya Tom PharmD [address] [place] [phone] Pharmacist Internal Medicine 05/26/24 Keysha Starr [address] [place] [address] 3rd [place] [address] Gastroenterology 10/02/24
--- OUTSIDE RECORDS SUMMARY | 2025-01-03 11:56 | XMS_ITS | Encounter Summary ---
Author Organization [employer] Address [address] [facility] 7t [place] [address] Care Team Providers Care Printed Circuit Boards Beveler Name Role Phone Ynes Nesbitt MD Primary Care Provider +- [phone] Taya Tom PharmD Unavailable [phone] HanssSummerGuerrero, Taya PharmD Unavailable [phone] Keysha Starr Unavailable Reason for Visit * Reason Onset Date Comments Results 11/02/2022 Encounter Details Date Type Department Care Team (Late st Contact Info) Description 11/02/2022 Telephone [facility] [address] [place] [address] Ynes Nesbitt MD [address] [place], [place] [phone] Results Social History Tobacco Use Types Packs/Day Years Used Date Smoking Tobacco: Never Passive Smoke Exposure: Never Smokeless Tobacco: Never Sex and Gender Information Value Date Recorded Sex Assigned at Male 08/03/2022 10:20 AM EDT Legal Sex Male 10:20 AM EDT Gender Identity Male 08/03/2022 10:20 AM EDT Sexual Orientation Straight 08/03/2022 10 :20 AM EDT COVID-19 Exposure Response Date Recorded In the last 10 days, have yo u been in contact with someone who was confirmed or suspected to have Coronavirus/COVID-19? No / Unsure 10/26/2022 5:03 PM EST documented as of this encounter Miscellaneous Notes * Telephone Encounter - Marcia Carpenter LPN - 11/02/2022 8:39 AM EST Critical Result line call on line on arrival this morning. Call reported from [facility] at 10/30/22 4:42pm. Call returned to [facility] for result. Reference WC [id number] V Collected 10/29/22 Result Glucose HIGH @ 487 Please update MD with above. documented in this encounter Plan of Treatment Not on file documented as of this encounter Visit Diagnoses Not on filedocumented in this encounter Care Teams Printed Circuit Boards Beveler Relationship Specialty Start Date End Date Ynes Nesbitt MD [address] [place] [address] PCP - General Family Medicine 10/04/18 Taya Tom, ChevyD [address] [place] [address] Pharmacist Internal Medicine 11/11/22 08/02/23 Taya Tom, PharmD [address] [place] [phone] Pharmacist Internal Medicine 05/26/24 Keysha Starr [address] [place] [address] Drive 3rd [place] [address] Gastroenterology 10/02/24 documented as of this encounter
--- OUTSIDE RECORDS SUMMARY | 2025-01-03 11:56 | XMS_ITS | Encounter Summary ---
Author Organization [employer] Address 75 [facility] 7t [place] [address] Care Team Providers Care Carousel Attendant Name Role Phone Ynes Nesbitt MD Primary Care Provider +- [phone] Taya Tom PharmD Unavailable [phone] Taya Tom PharmD Unavailable [phone] Keysha Starr Unavailable Encounter Details Date Type Department Care Team (Late st Contact Info) Description 11/12/2022 Abstract [facility] MED[facility]INE 230 [place], [place] [phone] Ynes Nesbitt MD [address] [place], [place] [phone] Social History Tobacco Use Types Packs/Day Years [...] was confirmed or suspected to have Coronavirus/COVID-19? Unable to assess 11/10/2022 11:08 AM EST documented as of this encounter Plan of Treatment Not on file documented as of this encounter Goals Goal Patient Goal Type Associated Problems Recent Progress Patient-Stated? Author Hemoglobin A1c < 7 Result Component 9.7(10/02/2024 12:04 PM EST) No Taya Tom, PharmD documented as of this encounter Procedures Procedure Name Priority Date/Time Associated Diagnosis Comments COLONOSCOPY Routine 08/04/2016 documented in this encounter Results * Colonoscopy (08/04/2016) Colonoscopy tubular adenoma with Dr. Corado us Historical Provider HEALTH MAINTENANCE Final Result documented in this encounter Visit Diagnoses Not on filedocumented in this encounter Care Teams Carousel Attendant Relationship Specialty Start Date End Date Ynes Nesbitt MD [address] [place] [address] PCP - General Family Medicine 10/04/18 Taya Tom, PharmD [address] [place] [address] Pharmacist Internal Medicine 11/11/22 08/02/23 Taya Tom, PharmD [address] [place] [address] Pharmacist Internal Medicine 05/26/24 Keysha Starr [address] [place] [address] Drive 3rd [place] [address] Gastroenterology 10/02/24 documented as of this encounter
--- OUTSIDE RECORDS SUMMARY | 2025-01-03 11:56 | XMS_ITS | Encounter Summary ---
Author Organization [employer] Address [address] [facility] 7t [place] [address] Care Team Providers Care Fire Investigator Name Role Phone Ynes Nesbitt MD Primary Care Provider +1- [phone] Taya Tom PharmD Unavailable [phone]- [phone] Keysha Starr Unavailable Encounter Details Date Type Department Care Team (Late st Contact Info) Description 10/17/2024 Telephone [facility] MEDICINE 230 [place], [place] [phone] Ynes Nesbitt MD [address] [place], [place] [phone] Social History Tobacco Use Types Packs/Day Years Used Date Smoking Tobacco: Never Passive Smoke Exposure: Never Smokeless Tobacco: Never Depression Answer Date Recorded Patient Health Questionnaire-9 [...] Orientation Straight 08/03/2022 10 :20 AM EDT documented as of this encounter Plan of Treatment Not on file documented as of this encounter Goals Goal Patient Goal Type Associated Problems Recent Progress Patient-Stated? Author Hemoglobin A1c < 7 Result Component 9.7(10/02/2024 12:04 PM EST) No Taya Tom, PharmD documented as of this encounter Visit Diagnoses Not on filedocumented in this encounter Additional Health Concerns Assessment Noted Time PHQ-9 Depression Total Score: 0 04/24/20 24 10:43 AM EDT documented as of this encounter Care Teams Fire Investigator Relationship Specialty Start Date End Date Ynes Nesbitt MD [address] [place] [address] PCP - General Family Medicine 10/04/18 Taya Tom, PharmD [address] [place] [address] Pharmacist Internal Medicine 05/26/24 Keysha Starr [address] [place] [address] Drive 3rd [place] [address] Gastroenterology 10/02/24 documented as of this encounter
--- OUTSIDE RECORDS SUMMARY | 2025-01-03 11:56 | XMS_ITS | Encounter Summary ---
Author Organization [employer] Address 75 [facility] 7t [place] [address] Care Team Providers Care Production Technician Name Role Phone Ynes Nesbitt MD Primary Care Provider +- [phone] Taya Tom PharmD Unavailable [phone] Keysha Starr Unavailable Reason for Visit * Reason Comments Med Refill Encounter Details Date Type Department Care Team (Late st Contact Info) Description 09/20/2024 Refill [facility] [address] [place], [place] [phone] Shea James MD [address] [place], [place] [phone] Social History Tobacco Use Types Packs/Day Years [...] documented as of this encounter Care Teams Production Technician Relationship Specialty Start Date End Date Ynes Nesbitt MD 230 [place] [address] PCP - General Family Medicine 10/04/18 Taya Tom, PharmD 230 [place] [address] Pharmacist Internal Medicine 05/26/24 Keysha Starr [address] [place] [address] Drive 3rd [place] [address] Gastroenterology 10/02/24 documented as of this encounter
--- OUTSIDE RECORDS SUMMARY | 2025-01-03 11:56 | XMS_ITS | Encounter Summary ---
Author Organization [employer] Address 75 [facility] 7t [place] [address] Care Team Providers Care Soup Person Name Role Phone Ynes Nesbitt MD Primary Care Provider +1- [phone] Taya Tom PharmD Unavailable +1- [phone] Keysha Starr Unavailable Encounter Details Date Type Department Care Team (Late st Contact Info) Description 05/23/2024 Orders Only [facility] MEDICINE 230 [place], [place] [phone] Ynes Nesbitt MD 230 [place], [place] [phone] Yeast infection Social History Tobacco Use Types Packs/Day Years [...] Recorded Patient Health Questionnaire-2 Score 0 04/24/2024 Sex and Gender Information Value Date Recorded [...] documented as of this encounter Visit Diagnoses Diagnosis Yeast infection documented in this encounter Additional Health Concerns Assessment Noted Time PHQ-9 Depression Total Score: 0 04/24/20 10:43 AM EDT documented as of this encounter Care Teams Soup Person Relationship Specialty Start Date End Date Ynes Nesbitt MD [address] [place] [address] PCP - General Family Medicine 10/04/18 Taya Tom, PharmD [address] [place] [phone] Pharmacist Internal Medicine 05/26/24 Keysha Starr [address] [place] [address] Drive 3rd [place] [address] Gastroenterology 10/02/24 documented as of this encounter
== END 2025-01-03 11:52 | disposition home or self-care (01) ==
LOC: HO.HGI 10:15
PROVIDERS: PCP Student in an Organized Health Care Education/Training Program; Visit Provider Internal Medicine
DX: K52.9 Noninfective gastroenteritis and colitis, unspecified (principal); K76.0 Fatty (change of) liver, not elsewhere classified; F10.90 Alcohol use, unspecified, uncomplicated; R74.01 Elevation of levels of liver transaminase levels; E11.9 Type 2 diabetes mellitus without complications; E78.5 Hyperlipidemia, unspecified; D36.9 Benign neoplasm, unspecified site
CPT/HCPCS: 99214

== ENCOUNTER → 2025-01-03 10:15 | Outpatient (BNVA) | payer OTHER, SELFPAY | PROVIDERS: PCP Student in an Organized Health Care Education/Training Program; Visit Provider Internal Medicine ==

== ENCOUNTER → 2025-01-30 09:05 | Outpatient (BNVA) | payer SELFPAY | PROVIDERS: PCP Family Medicine; Visit Provider Physician Assistant Medical | DX: Z02.79 Encounter for issue of other medical certificate (principal) ==

== ENCOUNTER 2025-02-05 09:39 | Outpatient (REF) | payer OTHER, SELFPAY ==
--- OUTSIDE RECORDS SUMMARY | 2025-02-05 10:31 | XMS_ITS | Encounter Summary ---
Author Organization [employer] Address 75 [facility] 7t [place] [address] Care Team Providers Care Medical Safety Director Name Role Phone Ynes Nesbitt MD Primary Care Provider +1- [phone] Taya Tom PharmD Unavailable +1- [phone] Keysha Starr Unavailable Encounter Details Date Type Department Care Team (Latest Contact Info) Description 01/31/2025 Travel Social History Tobacco Use Types Packs/Day Years [...] Author Hemoglobin A1c < 7 Result Component 8.4(02/05/2025 9:32 AM EDT) No Taya Tom, PharmD documented as of this encounter Visit Diagnoses Not on filedocumented in this encounter Additional Health Concerns Assessment Noted Time PHQ-9 Depression Total Score: 0 04/24/20 10:43 AM EDT documented as of this encounter Care Teams Medical Safety Director Relationship Specialty Start Date End Date Ynes Nesbitt MD [address] [place] [address] PCP - General Family Medicine 10/04/18 Taya Tom, PharmD [address] [place] [address] Pharmacist Internal Medicine 05/26/24 Keysha Starr [address] [place] [address] 3rd [place] [address] Gastroenterology 10/02/24 documented as of this encounter
--- OUTSIDE RECORDS SUMMARY | 2025-02-05 10:31 | XMS_ITS | Encounter Summary ---
Author Organization [employer] Address 75 [facility] 7t [place] [address] Care Team Providers Care Kick Plate Installer Name Role Phone Ynes Nesbitt MD Primary Care Provider +1- [phone] Taya Tom PharmD Unavailable +1- [phone] Keysha Starr Unavailable Encounter Details Date Type Department Care Team (Latest Contact Info) Description 02/05/2025 Travel Social History Tobacco Use Types Packs/Day [...] documented as of this encounter Care Teams Kick Plate Installer Relationship Specialty Start Date End Date Ynes Nesbitt MD 230 [place] [address] PCP - General Family Medicine 10/04/18 Taya Tom, PharmD [address] [place] [address] Pharmacist Internal Medicine 05/26/24 Keysha Starr [address] [place] [address] 3rd [place] [address] Gastroenterology 10/02/24 documented as of this encounter
--- OUTSIDE RECORDS SUMMARY | 2025-02-05 10:31 | XMS_ITS | Encounter Summary ---
Author Organization [employer] Address 75 [facility] 7t [place] [address] Care Team Providers Care Country Singer Name Role Phone Ynes Nesbitt MD Primary Care Provider +1- [phone] Taya Tom PharmD Unavailable +1- [phone] Keysha Starr Unavailable Encounter Details Date Type Department Care Team (Late st Contact Info) Description 10/17/[address] [facility] MEDICINE 230 [place], [place] [phone] Ynes Nesbitt MD 230 [place], [place] [phone] Social History Tobacco Use Types Packs/Day Years [...] documented as of this encounter Care Teams Country Singer Relationship Specialty Start Date End Date Ynes Nesbitt MD [address] [place] [address] PCP - General Family Medicine 10/04/18 Taya Tom, PharmD [address] [place] [address] Pharmacist Internal Medicine 05/26/24 Keysha Starr [address] [place] [address] Drive 3rd [place] [address] Gastroenterology 10/02/24 documented as of this encounter
--- OUTSIDE RECORDS SUMMARY | 2025-02-05 10:31 | XMS_ITS | Encounter Summary ---
Author Organization [employer] Address 75 [facility] 7t [place] [address] Care Team Providers Care Mophead Trimmer And Wrapper Name Role Phone Ynes Nesbitt MD Primary Care Provider +1- [phone] Taya Tom PharmD Unavailable Keysha Starr Unavailable Reason for Visit * Reason Onset Date Comments Med Refill 02/05/2025 Encounter Details Date Type Department Care Team (Late st Contact Info) Description 02/05/2025 Refill [facility] & P[facility]S [address] [place] [address] Ynes Nesbitt MD [address] [place] [address] Allergic reaction, sequela Social History Tobacco Use Types Packs/Day Years [...] AM EDT documented as of this encounter Miscellaneous Notes * Telephone Encounter - Chayito Clarke LPN - 02/05/2025 9:39 AM EDT Last seen 07.24.25 documented in this encounter Plan of Treatment Not on file documented as of this encounter Goals Goal Patient Goal Type Associated Problems Recent Progress Patient-Stated? Author Hemoglobin A1c < 7 Result Component 8.4(02/05/2025 9:32 AM EDT) No Taya Tom, PharmD documented as of this encounter Visit Diagnoses Diagnosis Allergic reaction, sequela documented in this encounter Additional Health Concerns Assessment Noted Time PHQ-9 Depression Total Score: 0 04/24/20 24 10:43 AM EDT documented as of this encounter Care Teams Mophead Trimmer And Wrapper Relationship Specialty Start Date End Date Ynes Nesbitt MD 230 [place] [address] PCP - General Family Medicine 10/04/18 Taya Tom, PharmD [address] [place] [address] Pharmacist Internal Medicine 05/26/24 Keysha Starr [address] [facility] [address]rd [place] [address] Gastroenterology 10/02/24 documented as of this encounter
--- OUTSIDE RECORDS SUMMARY | 2025-02-05 10:31 | XMS_ITS | Encounter Summary ---
Author Organization [employer] Address 75 [facility] 7t [place] [address] Care Team Providers Care Guest Request Runner Name Role Phone Ynes Nesbitt MD Primary Care Provider +- [phone] Taya Tom PharmD Unavailable [phone] HanssSummerGuerrero, Taya PharmD Unavailable [phone] Keysha Starr Unavailable Reason for Visit * Reason Onset Date Comments Results 11/02/2022 Encounter Details Date Type Department Care Team (Late st Contact Info) Description 11/02/2022 Telephone [facility] MEDICINE 230 [place], [place] [phone] Ynes Nesbitt MD [address] [place], [place] [phone] Results Social History Tobacco Use Types Packs/Day [...] on arrival this morning. Call reported from [facility] at 10/30/22 4:42pm. Call returned to [employer] for result. Reference WC [id number] V Collected 10/29/22 Result Glucose HIGH @ 487 Please update MD with above. documented in this encounter Plan of Treatment Not on file documented as of this encounter Visit Diagnoses Not on filedocumented in this encounter Care Teams Guest Request Runner Relationship Specialty Start Date End Date Ynes Nesbitt MD [address] [place] [address] PCP - General Family Medicine 10/04/18 Taya Tom, ChevyD [address] [place] [address] Pharmacist Internal Medicine 11/11/22 08/02/23 Taya Tom, PharmD [address] [place] [address] Pharmacist Internal Medicine 05/26/24 Keysha Starr [address] [place] [address] Drive 3rd [place] [address] Gastroenterology 10/02/24 documented as of this encounter
--- OUTSIDE RECORDS SUMMARY | 2025-02-05 10:31 | XMS_ITS | Clinical Summary ---
Author Organization [employer] Address [address] [facility] 7t [place] [address] Care Team Providers Care Rn Admission Name Role Phone Ynes Nesbitt MD Primary Care Provider +1- [phone] Taya Tom PharmD Unavailable Keysha Starr Unavailable Allergies Active Allergy Reactions Criticality Noted Date Comments Dulaglutide 10/26/2022 Metformin 07/28/2012 Other reaction(s): elevated LFTs Penicillin V Unknown 10/02/2010 Penicillins 10/26/2022 Medications omeprazole (PriLOSEC) [address] capsuleIndicati ons:Gastroesoph ageal reflux disease, unspecified whether esophagitis present TAKE ONE CAPSULE BY MOUTH EVERY DAY BEFORE A MEAL 90 capsule 1 024 Active amLODIPine (Norvasc) 5 MG tabletIndicatio ns:Essential hypertension Take 1 tablet (5 mg) by mouth Once per day. 90 tablet 3 024 Active glipiZIDE XL (Glucotrol XL) 10 MG 24 hr tablet Take 1 tablet (10 mg) by mouth Once per day. TAKE 1 TABLET BY MOUTH DAILY 90 tablet 3 024 Active Clotrimazole Anti-Fungal 1 % creamIndication s:Yeast infection APPLY TO AFFECTED AREA(S) AND SURROUNDING AREA(S) TWICE DAILY IN THE MORNING AND EVENING 45 g 1 024 Active FreeStyle lancetsIndicati ons:Type 2 diabetes mellitus with hyperglycemia, without long-term current use of insulin ([facility]) 1 each by Other route 4 times daily. Test blood sugar 4 times daily 200 each 11 024 Active glucose blood (FREESTYLE LITE) test stripIndication s:Type 2 diabetes mellitus with hyperglycemia, without long-term current use of insulin ([facility]) Test blood sugar 4 times daily 200 each Active Blood Glucose Monitoring Suppl (FreeStyle Lite) w/Device kitIndications: Type 2 diabetes mellitus with hyperglycemia, without long-term current use of insulin ([facility]) 1 each 4 times daily. 1 kit 024 Active loratadine (Claritin) 10 MG tabletIndicatio ns:Seasonal allergies TAKE ONE TABLET BY MOUTH ONCE DAILY FOR ALLERGY 90 tablet 3 024 Active ibuprofen 800 MG tablet TAKE 1 TABLET BY MOUTH THREE TIMES A DAY 90 tablet 024 Active tamsulosin (Flomax) 0.4 MG 24 hr capsule TAKE 1 CAPSULE BY MOUTH AT BEDTIME 025 Active lisinopril 40 MG tabletIndicatio ns:Essential hypertension,Ty pe 2 diabetes mellitus with hyperglycemia, unspecified whether usp insulin use ([facility]) Take 1 tablet by mouth once daily 90 tablet 3 025 Active EPINEPHrine (Epipen) 0.3 MG/0.3ML injection syringeIndicati ons:Allergic reaction, sequela INJECT INTRAMUSCULARLY DIRECTED ON PACKAGE FOR ANAPHYLAXIS 2 each 1 025 Active Tirzepatide (Mounjaro) 10 MG/0.5ML solution auto-injectorIn dications:Type 2 diabetes mellitus with hyperglycemia, unspecified whether watermaster insulin use ([facility]) Inject 10 mg under the skin every 7 (seven) days. 2 mL 3 025 Active omega-3 acid ethyl esters (Lovaza) 1 g capsuleIndicati ons:Dyslipidemi a Take 2 capsules (2 g) by mouth 2 times daily. 360 capsule 3 025 Active EPINEPHrine (Epipen) 0.3 MG/0.3ML injection syringeIndicati ons:Allergic reaction, sequela INJECT INTRAMUSCULARLY DIRECTED ON PACKAGE FOR ANAPHYLAXIS 2 each 1 024 2024 Discontinued(R eorder (will not trigger notification to Pharmacy)) omega-3 acid ethyl esters (Lovaza) 1 g capsule Take 2 capsules (2 g) by mouth 2 times daily. 360 capsule 024 2024 Discontinued(R eorder (will not trigger notification to Pharmacy)) Tirzepatide (Mounjaro) 7.5 MG/0.5ML solution auto-injectorIn dications:Type 2 diabetes mellitus with hyperglycemia, unspecified whether usp insulin use ([facility]) Inject 7.5 mg under the skin 1 (one) time per week. 2 mL 3 025 2024 Discontinued(D ose adjustment) Active Problems Problem Noted Date Diagnosed Date [...] due after 04/24/25 -eye care facilitated by [facility]. -dental home, not established. -health care proxy filed 04/24/24 Assessment & Plan (04/24/2024 11:16 AM EDT): -next physical exam due after 04/24/25 -eye care facilitated by [facility]. -dental home, not established. -health care [...] refilled 02/01/2023 as he is returning to [place] April-May. Assessment & Plan (02/01/2023 9:31 AM EDT): Acetazolamide refilled 02/01/2023 as he is returning to [place] April-May. Bradycardia 12/10/2022 Overview (02/01/2023): Asymptomatic bradycardia [...] Trulicity and willing to retry alt. GLP1: [facility] started Mounjaro 2.5mg. Patient reports adherence and denies ACE to [facility] 08/15/24. Mounjaro increased to 5mg once weekly 08/15/24. - Invokana discontinued by [facility] 08/15/24 due to recent UTI and ongoing [...] - He declines seeing DM educator and teamcenter solution architect. -Dutch/Arb: lisinopril 40mg -Statin therapy: Not on [...] Statin (fish oil changed to vascepa by [facility]) -re-referred to Collaborative Drug Therapy Managment Program with our GEGE Martinez Assessment & Plan (04/24/2024 11:15 AM EDT): [...] - He declines seeing DM educator and teamcenter solution architect. -Reschedule CDTM to discuss retrying glp 1 [...] Collaborative Drug Therapy Managment Program with our GEGE Martinez Assessment & Plan (02/01/2023 10:57 AM EDT): [...] - He declines seeing DM educator and teamcenter solution architect. - Seen CDTM 12/23/2022. - Reschedule CDTM [...] Encounters Date Type Department Care Team Description 02/05/2025 Refill [facility] [address] [place] [address] Ynes Nesbitt MD Allergic reaction, sequela 02/05/2025 Travel 01/31/2025 Travel 01/08/2025 Telephone [facility] [address] [place] [address] Ynes Nesbitt MD 01/04/2025 Telephone [facility] [address] [place], [place] [phone] Ynes Nesbitt MD from Last 3 Months Immunizations Name Administration [...] Sign Reading Time Taken Comments Blood Pressure 130/78 02/05/2025 9:28 AM EDT Pulse 84 02/05/2025 9:28 AM EDT Temperature 36.9 ??C (98.4 ??F) 07/24/2024 10:16 [...] , 07/11/2022, 07/25/2021, Additional history exists Diabetes: Urine Protein Screening 04/21/2025 04/21/2024, 10/29/2022, 08/03/2022 Depression Screening 04/24/2025 04/24/2024, 04/24/20 24 Diabetes: Foot Exam 04/24/2025 04/24/2024, 04/24/2024, 04/24/2024 SDOH Screening 04/24/2025 04/24/2024 Tobacco Screening 04/24/2025 04/24/2024 Diabetes: Hemoglobin A1C 05/08/2025 025, 10/02/2024, 08/15/2024, Additional history exists Lipid Panel 10/02/2025 10/02/2024, 04/03, 10/29/2022, Additional history exists Eye Exam 02/01/2026 02/02/2024, 050 10/2023, 02/02/2024, Additional history exists DTaP/Tdap/Td Vaccines [...] 9:32 AM EDT) No Taya Tom, PharmD Procedures Procedure Name Priority Date/Time Associated Diagnosis Comments POCT GLYCATED HEMOGLOBIN, TOTAL Routine 02/05/2025 9:32 AM EDT Type 2 diabetes mellitus with hyperglycemia, unspecified whether watermaster insulin use (CMS/HCC) LIPID PANEL, STANDARD Routine 10/02/2024 12:04 PM EST HEPATITIS PANEL, GENERAL Routine 04/27/2024 9:24 AM EDT Abnormal LFTs ALBUMIN, RANDOM URINE W/CREATININE Routine 04/21/2024 12:50 PM EDT Type 2 diabetes mellitus with hyperglycemia, without long-term current use of insulin (CMS/HCC) HIV 1/2 ANTIGEN/ANTIBODY, FOURTH GENERATION W/RFL Routine 02/01/2023 9:31 AM EDT Routine screening for STI (sexually transmitted infection) HM COLONOSCOPY Routine 08/04/2016 from Last 3 Months or Most Recently Relevant to Health Maintenance Results * (ABNORMAL) POCT A1C (02/05/2025 9:32 AM EDT) Hemoglobin A1C 8.4(A) 4.0 - 6.0 % QC Media Lot # [id number] Lot# Expiration Date [id number] Blood 02/05/2025 9:32 AM EDT Ynes Nesbitt MD POINT OF CARE TEST ENTER/E DIT ORDERABLES Final Result * (ABNORMAL) Lipid Panel, Standard (10/02/2024 12:04 PM EST) Triglycerides 209(H) <150 mg/dL [facility] Comment:Desirable Triglyceri de: less than 150 mg/dLBorderline High Triglyceride 150-199 mg/dLHigh Triglyceride: 200-499 mg/dLVery High Triglyceride: greater than or equal to 5OO mg/dL Cholesterol 163 <200 mg/dL [facility] Comment:Desirable Cholestero l: less than 200 mg/dLBorderline High Cholesterol: 200-239 mg/dLHigh Cholesterol: greater than 239 mg/dL LDL Cholesterol Calculated 87 <100 mg/dL [facility] Comment:Desirable LDL: less than 100 mg/dLNear Optimal/Above Optimal LDL: 110- 129 mg/dLBorderline High LDL: 130-159 mg/dLHigh LDL: 160-189 mg/dLVery High LDL: greater than or equal to 190 mg/dL HDL Cholesterol 35(L) >40 mg/dL [facility] Comment:Desirable HDL: great er than 40 mg/dL Note: This HDL assay may give artificially low results in patients with liver disease. 10/02/2024 12:0 4 PM EST 10/02/2024 12:04 PM EST Generic External Data Provider LAB BLOOD ORDERAB LES Final Result Performing Organization Address [facility] de Phone Number [facility] [address] [place] [phone] * Hepatitis Panel, General (04/27/2024 9:24 AM EDT) Hepatitis A IgM Nonreactive Nonreactive [facility] Comment:IgM antibodies to NEELY V not detected; does not exclude earlyacute or recovered HAV infection. ~Hepatitis B Surface Antibody NONREACTIVE Nonreactive [facility] Comment:Nonreactive: < 8.00 mIU/mL Hepatitis B Core Antibody Nonreactive Nonreactive [facility] Hepatitis C Antibody Nonreactive Nonreactive [facility] Comment:Antibodies to HCV no t detected; does not exclude early acuteHCV infection. Hepatitis B Surface Ag Negative Negative [facility] Blood Venous blood specimen / Unknown 04/27/2024 9:24 AM EDT 04/27/2024 9:28 AM EDT Ynes Nesbitt MD LAB BLOOD ORDERABLES Final Result Performing Organization Address [facility] Co de Phone Number [facility] [address] [place] [phone] * Albumin, Random Urine W/Creatinine (04/21/2024 12:50 PM EDT) Creatinine, Urine 39.69 mg/dL [facility] Microalbumin Urine <5.0 mg/L [facility] Microalbum Creatinine Ratio Ur TNP <30 ug/mg cr [facility] Comment:Unable to calculate albumin/creatinine ratio due to lowmicroalbumin or creatinine result. Urine 04/21/2024 12:5 0 PM EDT 04/21/2024 4:18 PM EDT Ynes Nesbitt MD LAB URINE ORDERABLES Final Result [facility] [address] [place] [phone] * HIV-1/2 Antigen and Antibodies, Fourth Generation, with Reflexes (02/01/2023 9:31 AM EDT) HIV Antigen/Antibody, 4th Generation NON-REAC TIVE NON-REAC TIVE [facility] Comment: HIV-1 antigen and HIV-1/HIV-2 antibodies [...] ?? For additional information please refer to http://education.[employer]/faq/BRR025 (This link is being provided for informational/ educational purposes only.) The performance of this assay has not been clinically validated in patients less than 2 years old. Blood Venous blood specimen / Unknown 02/01/2023 9:31 AM EDT 02/01/2023 9:32 AM EDT Ynes Nesbitt MD LAB BLOOD ORDERABLES Final Result [facility] [address] [facility], [place] [phone] [facility] [address] [place] [phone] * Colonoscopy (08/04/2016) Colonoscopy tubular adenoma with Dr. Mak Norwood us Historical Provider HEALTH MAINTENANCE Final Result from Last 3 Months or Most Recently Relevant to Health Maintenance Insurance [facility] F[facility] Advance Directives Documents on File Type Date Recorded Patient Utility Person Expl anation Advance Directives and Living Will 04/24/2024 Health Care Proxy 04/24/24 Care Teams Rn Admission Relationship Specialty Start Date End Date [place], MD Ynes [address] [place] [address] PCP - General Family Medicine 10/04/18 Taya Tom PharmD [address] [place] [address] Pharmacist Internal Medicine 05/26/24 Keysha Starr [address] [place] [address] Drive 3rd [place] [address] Gastroenterology 10/02/24
--- OUTSIDE RECORDS SUMMARY | 2025-02-05 10:31 | XMS_ITS | Encounter Summary ---
Author Organization [employer] Address [address] [facility] 7t [place] [address] Care Team Providers Care Director Trust Name Role Phone Ynes Nesbitt MD Primary Care Provider [phone]- [phone] Taya Tom PharmD Unavailable [phone] Taya Tom PharmD Unavailable [phone] Keysha Starr Unavailable Encounter Details Date Type Department Care Team (Late st Contact Info) Description 11/12/2022 Abstract [facility] [address] [place], [place] [phone] Ynes Nesbitt MD [address] [place], [place] [phone] Social History Tobacco Use Types Packs/Day Years [...] on filedocumented in this encounter Care Teams Director Trust Relationship Specialty Start Date End Date Ynes Nesbitt MD [address] [place] [address] PCP - General Family Medicine 10/04/18 Taya Tom, PharmD [address] [place] [phone] Pharmacist Internal Medicine 11/11/22 08/02/23 Taya Tom, PharmD [address] [place] [phone] Pharmacist Internal Medicine 05/26/24 Keysha Starr [address] [place] [address] Drive 3rd [place] [address] Gastroenterology 10/02/24 documented as of this encounter
--- OUTSIDE RECORDS SUMMARY | 2025-02-05 10:31 | XMS_ITS | Encounter Summary ---
Author Organization [employer] Address [address] [facility] 7t [place] [address] Care Team Providers Care Pharmacy Resource Tech Name Role Phone Ynes Nesbitt MD Primary Care Provider +- [phone] Taya Tom PharmD Unavailable [phone] Keysha Starr Unavailable Reason for Visit * Reason Comments Med Refill Encounter Details Date Type Department Care Team (Late st Contact Info) Description 09/20/2024 Refill [facility] [address] [place] [address] Shea James MD [address] [place], [place] [phone] Social History Tobacco Use Types Packs/Day Years [...] documented as of this encounter Care Teams Pharmacy Resource Tech Relationship Specialty Start Date End Date Ynes Nesbitt MD [address] [place] [address] PCP - General Family Medicine 10/04/18 Taya Tom, PharmD [address] [place] [address] Pharmacist Internal Medicine 05/26/24 Keysha Starr [address] [place] [address] 3rd [place] [address] Gastroenterology 10/02/24 documented as of this encounter
--- OUTSIDE RECORDS SUMMARY | 2025-02-05 10:31 | XMS_ITS | Encounter Summary ---
Author Organization [employer] Address [address] [facility] 7t [place] [address] Care Team Providers Care Senior Network Engineer Name Role Phone Ynes Nesbitt MD Primary Care Provider [phone]- [phone] Taya Tom PharmD Unavailable [phone] Keysha Starr Unavailable Encounter Details Date Type Department Care Team (Late st Contact Info) Description 05/23/2024 Orders Only [facility] [address] [place], [place] [phone] Ynes Nesbitt MD [address] [place], [place] [phone] Yeast infection Social History Tobacco Use Types [...] documented as of this encounter Care Teams Senior Network Engineer Relationship Specialty Start Date End Date Ynes Nesbitt MD [address] [place] [address] PCP - General Family Medicine 10/04/18 Taya Tom, PharmD [address] [place] [phone] Pharmacist Internal Medicine 05/26/24 Keysha Starr [address] [place] [address] Drive 3rd [place] [address] Gastroenterology 10/02/24 documented as of this encounter
[2025-02-05 11:27] LABS: Hematocrit 42.6 % (42.0-52.0); INTERNATIONAL NORM RATIO 0.9 (0.9-1.1); Mean Corpuscular HGB Conc 35.2 g/dl (31.0-36.0); Mean Corpuscular Hemoglobin 30.1 pg (27.0-33.0); Mean Corpuscular Volume 85.5 fL (80.0-98.0); Mean Platelet Volume 9.8 fL (9.4-12.4); Platelet Count 217 X10*3/uL (160-400); Red Blood Count 4.98 X10*6/uL (4.60-5.80); Red Cell Distribution Width 12.5 % (11.0-16.0)
[2025-02-05 11:55] LABS: Alanine Aminotransferase 45 U/L (0-40); Albumin Level 4.3 g/dL (3.5-5.0); Alkaline Phosphatase 73 U/L (39-117); Anion Gap 12 (12-20); Aspartate Amino Transferase 28 U/L (5-37); Bilirubin Total 0.6 mg/dL (0.0-1.0); Blood Urea Nitrogen 12 mg/dL (9-16); Calcium 9.9 mg/dL (8.4-10.2); Carbon Dioxide 26 mmol/L (22-29); Chloride 108 mmol/L (96-108); Estimated Glomerular Filt Rate > 60; Glucose Random 127 mg/dL (60-115); Potassium 3.7 mmol/L (3.3-5.1); Sodium 142 mmol/L (135-145); Total Protein 6.9 g/dL (6.5-8.0)
== END 2025-02-05 09:40 | disposition home or self-care (01) ==
LOC: HO.HHCL 09:39
PROVIDERS: Visit Provider Internal Medicine
DX: R79.89 Other specified abnormal findings of blood chemistry (principal)
CPT/HCPCS: 36415; 80053; 85027; 85610

== ENCOUNTER 2025-03-27 08:44 | Outpatient (AMB) | payer OTHER, SELFPAY ==
--- NOTE | 2025-03-27 08:49 | A.OFFVIS_ITS ---
Intake Visit Reasons: 6m/ PVR Intake Note: Patient presents today for 6m follow up/PVR Urology Medications: none Blood Thinner: none PVR: 24ml Security Guards Dispatcher Required: No Accompanied by: Self / Same As Patient Allergies penicillin V Allergy (Unknown, Verified 03/27/25 08:49) severe Penicillins (PENICILLINS) Allergy (Unknown, Verified 03/27/25 08:49) SEVERE RXN CHILD - DOES NOT REMEMBER EXACTLY WHAT HAPPENE HPI Comments Details: Krunal is a very pleasant 59-year-old male patient of . He has a past medical history of obstructive sleep apnea, constipation, H pylori, depression, abnormal LFTs, hyperlipidemia, type 2 diabetes, and hypertension. He presents to the office today for follow-up of his lower urinary tract symptoms and balanitis. In discussion with the patient today he reports to be doing and feeling well. He denies having had any bothersome urinary issues or concerns since his last office visit here. He discusses having recently followed up with Gastroenterology and is undergoing colonoscopy for surveillance monitoring. He reports lower abdominal pressure he had been experiencing has since subsided and has discontinued his Flomax. He reports noting with better control of his diabetes he has had no bothersome urinary issues or concerns. We did discussed correlation of uncontrolled diabetes and lower urinary tract symptoms. In office urinalysis results reviewed with the patient today. PVR 23 mL. Previous workup has included an abdominal ultrasound 04/26 that noted bilateral kidneys with no hydronephrosis or renal calculi. Right kidney with 1.3 simple appearing renal cyst requiring no imaging follow-up per radiology report. In review of patient's chart it appears PSA 04/26 0.3. He currently denies any bothersome urinary issues. He denies urinary urgency, urinary frequency, incontinence, nocturia, hematuria, dysuria, foul smelling urine, changes to urinary stream, flank pain, fever, and or chills. He is happy with her current voiding parameters. In office urinalysis results with the patient today. PVR 24 mLs. All questions were answered. He otherwise offers no other issues or concerns at this time. In review of patient's chart it appears A1c is are as follows: A1c: 04/26 12.3, 09/26 9.7 [facility] Medical History VASILIY (obstructive sleep apnea) Constipation H. pylori infection Depression Tubular adenoma Hepatic steatosis Abnormal LFTs Hyperlipidemia LDL goal <100 Diabetes mellitus type 2, controlled, without complications Essential hypertension Surgical History S/P excision of lipoma (02/10/23) Hx of colonoscopy Hx of esophagogastroduodenoscopy Family History Mother Diabetes CVD (cardiovascular disease) Social History Alcohol intake: current Alcohol intake frequency: holidays/special occasions only Alcohol type: beer and wine Patient Tobacco Use Status: Never used Tobacco Review of Systems Const All systems reviewed & are unremarkable except as noted in HPI and below Physical Exam Const General: cooperative, healthy appearing, comfortable, no acute distress, well developed, alert and awake Nutritional Appearance: overweight Orientation/consciousness: patient oriented x3 Limitations: no limitations HEENT Head: Yes normal to inspection, Yes normocephalic and Yes atraumatic Ears: hearing grossly normal bilaterally Eyes General: appearance normal, both eyes and all related structures Neck Neck: Yes normal visual inspection and Yes trachea midline Chest Chest palpation & inspection: normal inspection of the chest Resp Effort & Inspection: normal respiratory effort and able to speak in complete sentences Cardio Rate: regular rate GI Inspection: Yes normal to inspection General: Yes no CVA tenderness Back/Spine/Pelvis Back: no CVA tenderness Skin General skin exam: no rashes or lesions noted Neuro General: patient oriented x3 Extrem General: Yes normal to inspection Psych Appearance: grossly normal and well kempt Mental Status: mental status grossly normal Speech and movement: Normal speech and movement present and Clear speech present Affect: normal affect Attitude: cooperative Thought process: Normal thought process present Thought content: Normal thought content present Insight: Fair insight present (Psych) Judgement: Fair judgement present (Psych) Assessment & Plan Assessment & Plan (1) Urinary frequency: Code(s): R35.0 - Frequency of micturition Category: Medical (2) Urinary urgency: Code(s): R39.15 - Urgency of urination Category: Medical (3) Renal cyst: Code(s): N28.1 - Cyst of kidney, acquired Category: Medical Plan In office urinalysis results with the patient today; as noted above. PVR 24 mL. He currently denies any bothersome urinary issues or concerns. He reports be happy with current voiding parameters. Will obtain PSA for surveillance monitoring. We discussed importance of management and diabetes for overall health and well- being as well as in relation to lower urinary tract symptoms and phimosis. All questions were answered. Follow-up in 6 months with PSA and PVR; or sooner with any issues, concerns, and or questions. Orders: Orders Prostate Specific Antigen Today R35.0 - Frequency of micturition, R39.15 - Urgency of urination Coding Level of Care Code Est Pt Level 3 (27559) Complex EM visit Add On G2211 Diagnoses Urinary frequency R35.0 Urinary urgency R39.15 Renal cyst N28.1
--- OUTSIDE RECORDS SUMMARY | 2025-03-27 09:06 | XMS_ITS | Encounter Summary ---
Author Organization [employer] Address [address] [place] [address] [address]t [place] [address] Care Team Providers Care Alley Worker Name Role Phone Ynes Nesbitt MD Primary Care Provider +- [phone] Taya Tom PharmD Unavailable [phone] Sola Tomsa PharmD Unavailable [phone] Keysha Starr Unavailable Encounter Details Date Type Department Care Team ([facility] Contact Info) Description 11/12/2022 Abstract [facility] [address] [place] [phone] Ynes Nesbitt MD [address] [place] [address] [phone] Social History Tobacco Use Types Packs/Day Years [...] as of this encounter Plan of Treatment Upcoming Encounters Date Type Department Care Team (Late Contact Info) Description 04/30/2025 9:30 AM EDT Medication Management [facility] [address] [place] [phone] Taya Tom PharmD [address] [place] [address] documented as of this encounter Goals Goal Patient Goal Type Associated Problems Recent Progress Patient-Stated? Author Hemoglobin A1c < 7 Result Component 8.4(02/05/2025 9:32 AM EDT) No Taya Tom, Michelle documented as of this encounter Procedures Procedure Name Priority Date/Time Associated Diagnosis Comments COLONOSCOPY Routine 08/04/2016 documented in this encounter Results * Colonoscopy (08/04/2016) Colonoscopy tubular adenoma with Dr. Corado us Historical Provider HEALTH MAINTENANCE Final Result documented in this encounter Visit Diagnoses Not on filedocumented in this encounter Care Teams Alley Worker Relationship Specialty Start Date End Date Ynes Nesbitt MD [address] [place] [address] PCP - General Family Medicine 10/04/18 Taya Tom PharmD [address] [place] [address] Pharmacist Internal Medicine 11/11/22 08/02/23 Taya Tom PharmD [address] [place] [phone] Pharmacist Internal Medicine 05/26/[address]rd [place] [address] Gastroenterology 10/02/24 documented as of this encounter
== END 2025-03-27 09:09 | disposition home or self-care (01) ==
LOC: HO.HUSH 08:45
PROVIDERS: PCP Family Medicine; Visit Provider Nurse Practitioner Family
DX: R35.0 Frequency of micturition (principal); R39.15 Urgency of urination; N28.1 Cyst of kidney, acquired; Z13.9 Encounter for screening, unspecified
CPT/HCPCS: 99213; G2211

== ENCOUNTER → 2025-03-27 08:44 | Outpatient (BNVA) | payer OTHER, SELFPAY | PROVIDERS: PCP Family Medicine; Visit Provider Nurse Practitioner Family | DX: R39.15 Urgency of urination (principal); R35.0 Frequency of micturition; N28.1 Cyst of kidney, acquired | CPT/HCPCS: 51798; 81003; 99212 ==